=== PATIENT | female | born 1940 | race Caucasian/White ===

== ENCOUNTER 2019-09-07 12:53 | Outpatient (CLI) | payer MEDICARE, SELFPAY ==
--- NOTE | ~2019-09-07 | MM_ITS ---
EXAMINATION: MM [facility] HISTORY: Screening mammogram TECHNIQUE: Craniocaudal and mediolateral oblique 3-D tomosynthesis images were obtained and synthetic 2-D images were generated. CAD analysis was submitted and interpreted. COMPARISON: 08/05/2018, 07/14/2017, 06/30/2017 BREAST PARENCHYMAL COMPOSITION: The breasts are almost entirely fatty. FINDINGS: Scattered benign-appearing calcifications are present. There is no evidence of suspicious m ass, calcification, or architectural distortion to suggest malignancy in either breast. There has bee n no suspicious interval change. IMPRESSION: 1. No mammographic evidence of malignancy. 2. Recommend routine screening mammography in one year. BI-RADS Category 2: Benign finding(s). Reviewed, dictated and finalized at location A. ERY STRIPER
== END 2019-09-07 12:54 | disposition home or self-care (01) ==
PROVIDERS: PCP Internal Medicine; Visit Provider Internal Medicine
DX: Z12.31 Encounter for screening mammogram for malignant neoplasm of breast (principal)
CPT/HCPCS: 77063; 77067

== ENCOUNTER 2020-11-15 14:20 | Outpatient (CLI) | payer MEDICARE, SELFPAY ==
--- NOTE | ~2020-11-15 | MM_ITS ---
EXAMINATION: MM screening [facility] BI w agata HISTORY: Screening mammogram TECHNIQUE: Craniocaudal and mediolateral oblique 3-D tomosynthesis images were obtained and synthetic 2-D images were generated. CAD analysis was submitted and interpreted. COMPARISON: , 08/05/2018 bilateral digital screening mammogram examinations BREAST PARENCHYMAL COMPOSITION: The breasts are almost entirely fatty. FINDINGS: Biopsy marker on the left; history of prior benign left breast biopsy. Occasional benign calcifications. There is no evidence of suspicious mass, calcification, or architectural distortion to suggest malign sam in either breast. There has been no suspicious interval change. IMPRESSION: 1. No mammographic evidence of malignancy. 2. Recommend routine screening mammography in one year. BI-RADS Category 2: Benign finding(s). Reviewed, dictated and finalized at location A.
--- NOTE | ~2020-11-15 | DEXA_ITS ---
Bone Density Report Name: Josi Huerta Age: 80 Sex: Female Ethnicity: White Date of : 1940 Indication: postmenopausal; height loss; hysterectomy; Referring Provider: Mau Mackenzie Study: Bone densitometry was performed. Exam Date: November 15, 2020 Accession number: [id number] Bone Density: Region BMD T-score Z-score Classification AP Spine (L1-L4) 1.097 0.5 3.0 Normal Femoral Neck (Right) 0.695 -1.4 0.8 Osteopenia Total Hip (Right) 0.856 -0.7 1.3 Normal World Health Organization criteria for BMD impression classify patients as: Normal (T-score at or above -1.0), Osteopenia (T-score between -1.0 and -2.5), or Osteoporosis (T-score at or below -2.5). 10-year Fracture Risk(1): Major Osteoporotic Fracture 12% Hip Fracture 2.4% Reported Risk Factors: [place] (), Neck BMD=0.695, BMI=34.8 (1) FRAX(R) Version 3.08. Fracture probability calculated for an untreated patient. Fracture probability may be lower if the patient has received treatment. Previous Exams: Region Exam Age BMD T-score BMD Change BMD Change Date g/cm2 vs Baseline vs Previous AP Spine(L1-L4) 11/15/2020 80 1.097 0.5 -0.033(-2.9%)# 0.065(6.3%)* 08/05/2018 78 1.032 -0.1 -0.097(-8.6%)# -0.065(-6.0%)* 12/12/2014 74 1.098 0.5 -0.032(-2.8%)# -0.032(-2.8%)# 10/18/2009 69 1.129 0.7 Total Hip(Right) 11/15/2020 80 0.856 -0.7 -0.049(-5.5%)# 0.011(1.2%) 08/05/2018 78 0.846 -0.8 -0.060(-6.6%)# -0.059(-6.5%)* 12/12/2014 74 0.904 -0.3 -0.001(-0.1%)# -0.001(-0.1%)# 10/18/2009 69 0.906 -0.3 *Denotes significance at 95% confidence level, LSC for AP Spine = 0.022 g/cm2, LSC for Total Hip = 0.027 g/cm2 Clinical Information Provided by Patient: Has used the following medications: Vitamin D Has the following medical conditions: Hysterectomy Patient maximum height was 67 Menopause Age: 52 Drinks caffeinated beverages Onset of menses at age 14 Number of children 3 Impression: The patient has low bone mass, based on the Right Femoral Neck T-score. The patient has an estimated ten-year risk of hip fracture of 2.4% and an estimated ten-year risk of major fracture of 12%, based on the WHO FRAX algorithm. No significant bone loss was observed. Discussion: BONE DENSITY IS LOW AT ONE OR MORE SKELETAL SITES. This patient's lowest T-score is low at one or more skeletal sites. It meets the World Health Organization's (WHO) criteria for ?low bone mass? (T-score between -1.0 and -2.5). The patient
== END 2020-11-15 14:21 | disposition home or self-care (01) ==
LOC: ANHIMG 14:27
PROVIDERS: PCP Internal Medicine; Visit Provider Internal Medicine
DX: Z12.31 Encounter for screening mammogram for malignant neoplasm of breast (principal); M81.0 Age-related osteoporosis without current pathological fracture; M85.851 Other specified disorders of bone density and structure, right thigh
CPT/HCPCS: 77063; 77067; 77080

== ENCOUNTER 2022-03-06 10:24 | Outpatient (CLI) | payer MEDICARE, SELFPAY ==
--- NOTE | ~2022-03-06 | MM_ITS ---
EXAMINATION: MM screening [facility] BI w agata HISTORY: Screening mammogram TECHNIQUE: Craniocaudal and mediolateral oblique 3-D tomosynthesis images were obtained and synthetic 2-D images were generated. CAD analysis was submitted and interpreted. COMPARISON: 11/15/2020, , 08/05/2018 bilateral screening mammogram examinations BREAST PARENCHYMAL COMPOSITION: There are scattered areas of fibroglandular density. FINDINGS: Biopsy marker on the left; history of prior benign left breast biopsy. Scattered bilateral benign calcifications. There is no evidence of suspicious mass, calcification, or architectural disto rtion to suggest malignancy in either breast. There has been no suspicious interval change. IMPRESSION: 1. No mammographic evidence of malignancy. 2. Recommend routine screening mammography in one year. BI-RADS Category 2: Benign finding(s). Reviewed, dictated and finalized at location A.
== END 2022-03-06 10:25 | disposition home or self-care (01) ==
PROVIDERS: PCP Internal Medicine; Visit Provider Internal Medicine
DX: Z12.31 Encounter for screening mammogram for malignant neoplasm of breast (principal)
CPT/HCPCS: 77063; 77067

== ENCOUNTER 2023-12-04 13:48 | Outpatient (CLI) | payer MEDICARE, SELFPAY ==
--- NOTE | ~2023-12-04 | MM_ITS ---
EXAMINATION: MM screening [facility] BI w agata HISTORY: Screening mammogram TECHNIQUE: Craniocaudal and mediolateral oblique 3-D tomosynthesis images were obtained and synthetic 2-D images were generated. CAD analysis was submitted and interpreted. COMPARISON: 03/06/2022, 11/15/2020 bilateral screening mammogram examinations BREAST PARENCHYMAL COMPOSITION: There are scattered areas of fibroglandular density. FINDINGS: There is no evidence of suspicious mass, calcification, or architectural distortion to sugg est malignancy in either breast. There has been no suspicious interval change. IMPRESSION: 1. No mammographic evidence of malignancy. 2. Recommend routine screening mammography in one year. BI-RADS Category 1: Negative Reviewed, dictated and finalized at location B.
== END 2023-12-04 13:49 | disposition home or self-care (01) ==
PROVIDERS: PCP Internal Medicine; Visit Provider Internal Medicine
DX: Z12.31 Encounter for screening mammogram for malignant neoplasm of breast (principal)
CPT/HCPCS: 77063; 77067

== ENCOUNTER 2024-09-28 14:31 | Outpatient (CLI) | payer MEDICARE, SELFPAY ==
--- NOTE | ~2024-09-28 | DEXA_ITS ---
Bone Density Report Name: JANE CADE Age: 84 Sex: Female Ethnicity: White Date of : 1940 Indication: postmenopausal; screening for osteoporosis; height loss; prior fracture; hysterectomy; Referring Provider: LENARD BYNUM Study: Bone densitometry was performed. Exam Date: September 28, 2024 Accession number: [id number] Bone Density: Region BMD T-score Z-score Classification AP Spine(L1-L4) 1.073 0.2 3.0 Normal Femoral Neck (Right) 0.696 -1.4 1.0 Osteopenia Total Hip (Right) 0.841 -0.8 1.4 Normal World Health Organization criteria for BMD impression classify patients as: Normal (T-score at or above -1.0), Osteopenia (T-score between -1.0 and -2.5), or Osteoporosis (T-score at or below -2.5). 10-year Fracture Risk: FRAX not reported because: Prior hip or vertebral fracture Previous Exams: Region Exam Age BMD T-score BMD Change BMD Change Date g/cm2 vs Baseline vs Previous AP Spine (L1-L4) 09/28/2024 84 1.073 0.2 -0.024 (-2.2%) -0.023 (-2.1%) 11/15/2020 80 1.097 0.5 -0.001 (-0.1%) 0.065 (6.3%)* 08/05/2018 78 1.032 -0.1 -0.065 (-6.0%) -0.065 (-6.0%) 12/12/2014 74 1.098 0.5 Total Hip(Right) 09/28/2024 84 0.841 -0.8 -0.064 (-7.0%) -0.015 (-1.8%) 11/15/2020 80 0.856 -0.7 -0.048 (-5.3%) 0.011 (1.2%) 08/05/2018 78 0.846 -0.8 -0.059 (-6.5%) -0.059 (-6.5%) 12/12/2014 74 0.904 -0.3 *Denotes significance at 95% confidence level, LSC for AP Spine = 0.022 g/cm2, LSC for Total Hip = 0.027 g/cm2 Clinical Information Provided by Patient: Have had a previous hip or vertebral fracture Has had a low trauma fracture Has used the following medications: HRT (i.e. estrogen/hormone therapy), Vitamin D Has the following medical conditions: Hysterectomy Patient maximum height was 67.0 Menopause Age: 47 No regular weight bearing exercise Does not regularly consume dairy products Drinks caffeinated beverages Onset of menses at age 14 Impression: The patient has low bone mass, based on the Right Femoral Neck T-score. The patient has risk factors, including: previous fracture. The BMD for the AP Spine (L1-L4) decreased, changing by -2.1% since the last DXA exam. Discussion: INCREASED RISK OF FRACTURE DUE TO HISTORY OF FRACTURE. The patient's previous fracture puts the patient at high risk of a future fracture. In untreated patients, the risk of osteoporotic fracture increases approximately two-fold for each 1.0 SD decrease in T-score. Low bone density is not the only risk factor for fracture; also consider factors such as patient's age, frailty or poor health, risk of falling, risk of injury, previous osteoporotic fracture, family history of osteoporosis, cigarette smoking, low body weight, etc. Not everyone with a low trauma fracture has osteoporosis; osteomalacia and other metabolic bone disorders should also be considered. Patients who have osteoporosis should be evaluated for specific diseases and conditions (secondary causes) that may cause or contribute to bone loss and fracture risk. National Osteoporosis Foundation (NOF) recommends pharmacologic intervention for patients with a prior hip or vertebral fracture regardless of BMD T-score. The patient should follow a healthful lifestyle (good nutrition with adequate calcium and vitamin D, and appropriate weight-bearing exercise). Follow-Up: Consider a repeat BMD and Vertebral Fracture Assessment (VFA) exam in 2 years or sooner if medically necessary, to reassess this patient's status. Reported by: RODRIGO on 09/28/2024 3:07:00 PM. Reviewed, dictated and finalized at location [place] [facility]
--- OUTSIDE RECORDS SUMMARY | 2024-09-28 16:27 | XMS_ITS | Encounter Summary ---
Author Organization [employer] Address [address] [place] [address] Care Team Providers Care Thermostat Machine Tender Name Role Phone Jaspal Alamo MD Primary Care Provider [phone] Encounter Details Date Type Department Care Team (Latest Contact Info) Description 09/23/2000 Outpatient Historical [facility]LE[facility] Jaspal Alamo MD [address] 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 [facility] [address] [place], [place] [id number] PCP - General 09/29/01 documented as of this encounter
--- OUTSIDE RECORDS SUMMARY | 2024-09-28 16:27 | XMS_ITS | Encounter Summary ---
Author Organization [facility] Address [address] [place] [address] Care Team Providers Care Doctor Of Naprapathy Name Role Phone Mau Mackenzie DO Primary Care Provider [phone] Mike Stanley MD Unavailable Encounter Details Date Type Department Care Team (Late st Contact Info) Description 08/20/2020 Lab Requisition [facility] [address] [place] [id number] Tiny Bassett MD [address] [place] [address] Social History Tobacco Use Types Packs/Day Years Used Date Smoking Tobacco: Unknown Alcohol Use Standard Drinks/Week Comments Yes 0 (1 standard drink = 0.6 oz pur e alcohol) Sex and Gender Information Value Date Recorded Sex Assigned at Not on file Gender Identity Not on file Sexual Orientation Not on file documented as of this encounter Plan of Treatment Not on file documented as of this encounter Procedures Procedure Name Priority Date/Time Associated Diagnosis Comments DERMATOPATHOLOGY Routine 08/16/2020 12:0 0 AM TRANSMISSION REPAIRER documented in this encounter Results * DERMATOPATHOLOGY (08/16/2020 12:00 AM TRANSMISSION REPAIRER) Case Report Dermatopathology Report Case: [id number] Authorizing Provider: Tiny Bassett MD Collected: 08/16/2020 12:00 AM Ordering Location: [facility]erm[facility] Lab Received: 08/20/2020 11:08 AM Pathologist: Brandy Nunn MD Specimen: Skin, right collarbone 12:10 PM [facility] DERMATOPATHOLOGY LABORATORY Final Diagnosis Specimen A. SKIN, right collarbone: EPIDERMOID CYST (L72.0) 12:10 PM [facility] DERMATOPATHOLOGY LABORATORY Clinical History R/O cyst. 12:10 PM [facility] DERMATOPATHOLOGY [facility]ORAT[facility] Gross Description Specimen A: Received is one formalin filled container labeled with the patient's name and designated right collarbone. The specimen consists of a [id number] excision, bisected. Jar 0. 12:10 PM [facility] DERMATOPATHOLOGY LABORATORY Microscopic Description Specimen A. SKIN, right collarbone: Within the dermis, there is a space lined by epithelium that resembles normal epidermis and the infundibular portion of the hair follicle. 12:10 PM [facility] DERMATOPATHOLOGY LABORATORY Disclaimer An external and internal positive and negative controls are appropriate for the histochemical, immunohistochemical and immunofluorescence stain(s) in this case (if any), except where stated explicitly. The performance characteristics of the stain(s) cited in this report were developed and its performance characteristic determined by the Dermatopathology Laboratory at [facility], directed by Dr. Joel Nunn. These tests need not be, and therefore are not, approved by the [place] Food and Drug Administration. The tests are used for clinical purposes. Billing Codes Specimen Charges Stain Charges 20830 1 12:10 PM [facility] DERMATOPATHOLOGY LABORATORY Embedded Images 12:10 PM [facility] DERMATOPATHOLOGY LABORATORY Pathology/Cytolog y TISSUE SPECIMEN FROM SKIN / Unknown 08/16/2020 08/20/2020 11:08 AM [facility] Tiny Bassett MD LAB - PATHOLOGY/CYTO LOGY ORDERABLES DERMATOPATHOLOGY LABORATORY [facility] - Department of Dermatology [address] [place] [id number] [place] [address] documented in this encounter Visit Diagnoses Not on filedocumented in this encounter Care Teams Doctor Of Naprapathy Relationship Specialty Start Date End Date Mau Mackenzie DO [address] [facility] [address] [place] [address] PCP - General Internal Medicine 11/24/14 [place] [address] [address] Orthopedic Surgery 01/11/15 documented as of this encounter
--- OUTSIDE RECORDS SUMMARY | 2024-09-28 16:27 | XMS_ITS | Encounter Summary ---
Author Organization [facility] Address [address] [place] [address] Care Team Providers Care Reconstructive Dentist Name Role Phone Mau Mackenzie DO Primary Care Provider [phone] Mike Stanley MD Unavailable Encounter Details Date Type Department Care Team (Late st Contact Info) Description 05/08/2020 Lab Requisition [facility] [address] [facility] [place] [phone] Vee Camacho MD [address] [facility] [address] [place] [address] Social History Tobacco Use Types Packs/Day Years [...] Priority Date/Time Associated Diagnosis Comments DERMATOPATHOLOGY Routine 05/07/2020 12:0 0 AM CDT documented in this encounter Results * DERMATOPATHOLOGY (05/07/2020 12:00 AM CDT) Case Report Dermatopathology Report Case: [id number] Authorizing Provider: Vee Camacho MD Collected: 05/07/2020 12:00 AM Ordering Location: [facility] Derm[facility] Lab Received: 05/08/2020 07:14 AM Pathologist: Corina Sawyer MD Specimen: Skin, crown of scalp 0 4:32 PM [facility]T DERMATOPATHOLOGY LABORATORY Final Diagnosis Specimen A. SKIN, crown of scalp: BASAL CELL CARCINOMA, MICRONODULAR TYPE (C44.41) 0 4:32 PM [facility]T DERMATOPATHOLOGY LABORATORY Clinical History R/O BCC, irritated. 0 4:32 PM CDT DERMATOPATHOLOGY LABORATORY Gross Description Specimen A: Received is one formalin filled container labeled with the patient's name and designated crown of scalp. The specimen consists of a shave measuring [id number]. Jar 0. 0 4:32 PM CDT DERMATOPATHOLOGY LABORATORY Microscopic Description Specimen A. SKIN, crown of scalp: Within the dermis there are small aggregates of basaloid cells with a high nuclear to cytoplasmic ratio and peripheral palisading of their nuclei. 0 4:32 PM CDT DERMATOPATHOLOGY LABORATORY Disclaimer An external and internal positive and negative controls are appropriate for the histochemical, immunohistochemical and immunofluorescence stain(s) in this case (if any), except where stated explicitly. The performance characteristics of the stain(s) cited in this report were developed and its performance characteristic determined by the Dermatopathology Laboratory at [facility], directed by Dr. Joel Nunn. These tests need not be, and therefore are not, approved by the [place] Food and Drug Administration. The tests are used for clinical purposes. Billing Codes Specimen Charges Stain Charges 54174 1 0 4:32 PM CDT DERMATOPATHOLOGY LABORATORY Embedded Images 0 4:32 PM CDT DERMATOPATHOLOGY LABORATORY Pathology/Cytolog y TISSUE SPECIMEN FROM SKIN / Unknown 05/07/2020 05/08/2020 7:14 AM CDT Vee Camacho MD LAB - PATHOLOGY/CYT OLOGY ORDERABLES DERMATOPATHOLOGY LABORATORY [facility] - Department of Dermatology [facility] [address] [facility] [phone] documented in this encounter Visit Diagnoses Not on filedocumented in this encounter Care Teams Reconstructive Dentist Relationship Specialty Start Date End Date Mau Mackenzie DO [address] [facility] [address] [place] [address] PCP - General Internal Medicine 11/24/14 [place] [address] [address] Orthopedic Surgery 01/11/15 documented as of this encounter
--- OUTSIDE RECORDS SUMMARY | 2024-09-28 16:27 | XMS_ITS ---
Author Organization [facility] Address [address] [place] [address] Phone Care Team Providers Care Vice President Compliance Name Role Phone OZZY COX DO Primary Care Provider [phone] Plan of Treatment Findings Encounter Date Evaluated the patient. Discu ssed treatment options with the patient. Discussed with patient proper care and hygeine for their feet. Patient tolerated procedures well without incident. Procedure: (94149 Debridement of toenails 6-10) Surgically debrided and mechanically reduced 6 or more toenails specifically nails 1-5 left and 1-5 right. Hemmorhage occurred none. CHECK UP with VISHNU Modi 12/07/2023 Last Documented On 4 10:30AM ; [facility] Evaluated the patient. Discu ssed treatment options with the patient. Discussed with patient proper care and hygeine for their feet. Patient tolerated procedures well without incident. Procedure: ([id number] Debridement of toenails 6-10) Surgically debrided and mechanically reduced 6 or more toenails specifically nails 1-5 left and 1-5 right. Hemmorhage occurred none. CHECK UP with VISHNU Modi 09/15/2023 Last Documented On 4 2:31PM ; [facility] Evaluated the patient. Discu ssed treatment options with the patient. Discussed with patient proper care and hygeine for their feet. Patient tolerated procedures well without incident. Procedure: ([id number] Debridement of toenails 6-10) Surgically debrided and mechanically reduced 6 or more toenails specifically nails 1-5 left and 1-5 right. Hemmorhage occurred none. CHECK UP with VISHNU GOMEZ HOOP BENDER TANK C 06/15/2023 Last Documented On 3 1:41PM ; [facility] Evaluated the patient. Discu ssed treatment options with the patient. Discussed with patient proper care and hygeine for their feet. Patient tolerated procedures well without incident. Procedure: ([id number] Debridement of toenails 6-10) Surgically debrided and mechanically reduced 6 or more toenails specifically nails 1-5 left and 1-5 right. Hemmorhage occurred none. CHECK UP with VISHNU GOMEZ HOOP BENDER TANK C 12/17/2022 Last Documented On 3 1:39PM ; [facility] Evaluated the patient. Discu ssed treatment options with the patient. Discussed with patient proper care and hygeine for their feet. Patient tolerated procedures well without incident. Procedure: ([id number] Debridement of toenails 6-10) Surgically debrided and mechanically reduced 6 or more toenails specifically nails 1-5 left and 1-5 right. Hemmorhage occurred none. CHECK UP with VISHNU GOMEZ HOOP BENDER TANK C 09/16/2022 Last Documented On 3 1:56PM ; [facility] Evaluated the patient. Discu ssed treatment options with the patient. Discussed with patient proper care and hygeine for their feet. Patient tolerated procedures well without incident. Procedure: ([id number] Debridement of toenails 6-10) Surgically debrided and mechanically reduced 6 or more toenails specifically nails 1-5 left and 1-5 right. Hemmorhage occurred none. CHECK UP with VISHNU BROOKSIS HOOP BENDER TANK C 06/10/2022 Last Documented On 2 1:52PM ; [facility] Evaluated the patient. Discu ssed treatment options with the patient. Discussed with patient proper care and hygeine for their feet. Patient tolerated procedures well without incident. Procedure: ([id number] Debridement of toenails 6-10) Surgically debrided and mechanically reduced 6 or more toenails specifically nails 1-5 left and 1-5 right. Hemmorhage occurred none. CHECK UP with COLEEN BOWSER DPM 03/10/2022 Last Documented On 2 1:42PM ; [facility] Evaluated the patient. Discu ssed treatment options with the patient. Discussed with patient proper care and hygeine for their feet. Patient tolerated procedures well without incident. Procedure: ([id number] Debridement of toenails 6-10) Surgically debrided and mechanically reduced 6 or more toenails specifically nails 1-5 left and 1-5 right. Hemmorhage occurred none. CHECK UP with COLEEN BOWSER DPM 11/19/2021 Last Documented On 2 5:03PM ; [facility] Reviewed treatment options f or nail dystrophy / onychomycosis including: No treatment and monitoring, topical meds, oral meds, nail removal and laser treatment. Advantages and disadvantages of each reviewed. Using oral agents would require regular blood test monitoring due to risk of hepatotoxicity and other adverse reactions including drug interactions. Topical meds are much safer yet carry very low efficacy. Pt has opted for Monitoring and debridement Upon debridement the toenail just fell off. No need for care. Nail will grow back within six months. Return to clinic as needed PODIATRY CONSULTATION- ESTABLISHED PATIENT with COLEEN BOWSER DPM 01/15/2021 Last Documented On 1 6:09PM ; [facility] Ordered follow-up visit 2 ye ars for gyne/breast exam 1 yr. for mammogram [employer] EXAM with NATALIE FAJARDO,JASON 01/24/2010 Last Documented On 0 7:46PM ; [facility] Instructions to patient Intervention and counseling on cessation of tobacco use Last Documented On 4 9:31AM ; [facility] Intervention and counseling on cessation of tobacco use Last Documented On 4 1:45PM ; [facility] Intervention and counseling on cessation of tobacco use Last Documented On 3 1:31PM ; [facility] Intervention and counseling on cessation of tobacco use Last Documented On 3 9:27AM ; [facility] Intervention and counseling on cessation of tobacco use Last Documented On 3 11:00AM ; [facility] Intervention and counseling on cessation of tobacco use Last Documented On 2 10:49AM ; [facility] Intervention and counseling on cessation of tobacco use Last Documented On 2 9:56AM ; [facility] Intervention and counseling on cessation of tobacco use Last Documented On 1 10:59AM ; [facility] Instructions for patient : B reast Self Exam discussed Last Documented On 0 3:39PM ; [facility] Lose weight Last Documented On 0 3:39PM ; [facility] Education and Decision Aids were provided during visit for: Patient education about acti vity/exercise prescribed Last Documented On 2 10:51AM ; [facility] Patient education about acti vity/exercise prescribed Last Documented On 2 4:58PM ; [facility] Patient education about acti vity/exercise prescribed Last Documented On 1 6:08PM ; [facility] Patient Education: weight be aring exercise Last Documented On 0 3:39PM ; [facility] Handout for self breast exam given Last Documented On 0 3:39PM ; [facility] Kegels handout given Last Documented On 0 3:39PM ; [facility] Calcium handout given Last Documented On 0 3:39PM ; [facility] BMI handout given Last Documented On 0 3:39PM ; [facility] Assessments Includes: Assessments for all patient encounters Findings Encounter Date [I73.9 - Peripheral vascular disease, unspecified] peripheral vascular disease CHECK UP with VISHNU GOMEZ HOOP BENDER TANK C 12/07/2023 Last Documented On 4 10:30AM ; [facility] [L60.0 - Ingrowing nail] ing rowing nail CHECK UP with VISHNU A CECILIAIS HOOP BENDER TANK C 12/07/2023 Last Documented On 4 10:30AM ; [facility] [M79.676 - Pain in unspecifi ed toe(s)] pain in toe CHECK UP with VISHNU A CECILIAIS HOOP BENDER TANK C 12/07/2023 Last Documented On 4 10:30AM ; [facility] Onychomycosis CHECK UP with VISHNU A JASON FN P C 12/07/2023 Last Documented On 4 10:30AM ; [facility] [I73.9 - Peripheral vascular disease, unspecified] peripheral vascular disease CHECK UP with VISHNU A ONTIS HOOP BENDER TANK C 09/15/2023 Last Documented On 4 2:31PM ; [facility] [L60.0 - Ingrowing nail] ing rowing nail CHECK UP with VISHNU A ONTIS HOOP BENDER TANK C 09/15/2023 Last Documented On 4 2:31PM ; [facility] [M79.676 - Pain in unspecifi ed toe(s)] pain in toe CHECK UP with VISHNU A ONTIS HOOP BENDER TANK C 09/15/2023 Last Documented On 4 2:31PM ; [facility] Onychomycosis CHECK UP with VISHNU A ONTIS FN P C 09/15/2023 Last Documented On 4 2:31PM ; [facility] [I73.9 - Peripheral vascular disease, unspecified] peripheral vascular disease CHECK UP with VISHNU A ONTIS HOOP BENDER TANK C 06/15/2023 Last Documented On 3 1:41PM ; [facility] [L60.0 - Ingrowing nail] ing rowing nail CHECK UP with VISHNU A ONTIS HOOP BENDER TANK C 06/15/2023 Last Documented On 3 1:41PM ; [facility] [M79.676 - Pain in unspecifi ed toe(s)] pain in toe CHECK UP with VISHNU A ONTIS HOOP BENDER TANK C 06/15/2023 Last Documented On 3 1:41PM ; [facility] Onychomycosis CHECK UP with VISHNU A ONTIS FN P C 06/15/2023 Last Documented On 3 1:41PM ; [facility] [I73.9 - Peripheral vascular disease, unspecified] peripheral vascular disease CHECK UP with COLEEN BOWSER DPM 03/17/2023 Last Documented On 3 9:43AM ; [facility] [L60.0 - Ingrowing nail] ing rowing nail CHECK UP with COLEEN BOWSER DPM 03/17/2023 Last Documented On 3 9:43AM ; [facility] [M79.676 - Pain in unspecifi ed toe(s)] pain in toe CHECK UP with COLEEN Walker NIELS DPM 03/17/2023 Last Documented On 3 9:43AM ; [facility] Onychomycosis CHECK UP with COLEEN BOWSER DPM 03/17/2023 Last Documented On 3 9:43AM ; [facility] [I73.9 - Peripheral vascular disease, unspecified] peripheral vascular disease CHECK UP with VISHNU A ONTIS HOOP BENDER TANK C 12/17/2022 Last Documented On 3 1:39PM ; [facility] [M79.676 - Pain in unspecifi ed toe(s)] pain in toe CHECK UP with VISHNU A ONTIS HOOP BENDER TANK C 12/17/2022 Last Documented On 3 1:39PM ; [facility] ONYCHOLYSIS CHECK UP with VISHNU A ONTIS FN P C 12/17/2022 Last Documented On 3 1:39PM ; [facility] Onychomycosis CHECK UP with VISHNU A ONTIS FN P C 12/17/2022 Last Documented On 3 1:39PM ; [facility] [M79.676 - Pain in unspecifi ed toe(s)] pain in toe CHECK UP with VISHNU A ONTIS HOOP BENDER TANK C 09/16/2022 Last Documented On 3 1:56PM ; [facility] ONYCHOLYSIS CHECK UP with VISHNU A ONTIS FN P C 09/16/2022 Last Documented On 3 1:56PM ; [facility] Onychomycosis CHECK UP with VISHNU A ONTIS FN P C 09/16/2022 Last Documented On 3 1:56PM ; [facility] [M79.676 - Pain in unspecifi ed toe(s)] pain in toe CHECK UP with VISHNU A ONTIS HOOP BENDER TANK C 06/10/2022 Last Documented On 2 1:52PM ; [facility] ONYCHOLYSIS CHECK UP with VISHNU BROOKSDUANE FN P C 06/10/2022 Last Documented On 2 1:52PM ; [facility] Onychomycosis CHECK UP with VISHNU BROOKSIS FN P C 06/10/2022 Last Documented On 2 1:52PM ; [facility] [M79.676 - Pain in unspecifi ed toe(s)] pain in toe CHECK UP with COLEEN Aaron BOWSER DPM 03/10/2022 Last Documented On 2 1:42PM ; [facility] ONYCHOLYSIS CHECK UP with COLEEN Aaron EASTMANBOWSER DPM 03/10/2022 Last Documented On 2 1:42PM ; [facility] Onychomycosis CHECK UP with COLEEN Aaron GOYALY DPM 03/10/2022 Last Documented On 2 1:42PM ; [facility] [M79.676 - Pain in unspecifi ed toe(s)] pain in toe CHECK UP with COLEEN Aaron BOWSER DPM 11/19/2021 Last Documented On 2 5:03PM ; [facility] ONYCHOLYSIS CHECK UP with COLEEN A BOWSER DPM 11/19/2021 Last Documented On 2 5:03PM ; [facility] Onychomycosis CHECK UP with COLEEN A BOWSER DPM 11/19/2021 Last Documented On 2 5:03PM ; [facility] ONYCHOLYSIS PODIATRY CONSULTATIO N- ESTABLISHED PATIENT with COLEEN A BOWSER DPM 01/15/2021 Last Documented On 1 6:09PM ; [facility] Onychomycosis PODIATRY CONSULTATIO N- ESTABLISHED PATIENT with COLEEN A BOWSER DPM 01/15/2021 Last Documented On 1 6:09PM ; [facility] Routine pelvic exam [employer] C[employer]ER EXAM with NATALIE RAINEY CNM 01/24/2010 Last Documented On 0 7:46PM ; [facility] Instructions Includes: Instructions for all patient encounters Instructions to patient Intervention and counseling on cessation of tobacco use Last Documented On 4 9:31AM ; [facility] Intervention and counseling on cessation of tobacco use Last Documented On 4 1:45PM ; [facility] Intervention and counseling on cessation of tobacco use Last Documented On 3 1:31PM ; [facility] Intervention and counseling on cessation of tobacco use Last Documented On 3 9:27AM ; [facility] Intervention and counseling on cessation of tobacco use Last Documented On 3 11:00AM ; [facility] Intervention and counseling on cessation of tobacco use Last Documented On 2 10:49AM ; [facility] Intervention and counseling on cessation of tobacco use Last Documented On 2 9:56AM ; [facility] Intervention and counseling on cessation of tobacco use Last Documented On 1 10:59AM ; [facility] Instructions for patient : B reast Self Exam discussed Last Documented On 0 3:39PM ; [facility] Lose weight Last Documented On 0 3:39PM ; [facility] Education and Decision Aids were provided during visit for: Patient education about acti vity/exercise prescribed Last Documented On 2 10:51AM ; [facility] Patient education about acti vity/exercise prescribed Last Documented On 2 4:58PM ; [facility] Patient education about acti vity/exercise prescribed Last Documented On 1 6:08PM ; [facility] Patient Education: weight be aring exercise Last Documented On 0 3:39PM ; [facility] Handout for self breast exam given Last Documented On 0 3:39PM ; [facility] Kegels handout given Last Documented On 0 3:39PM ; [facility] Calcium handout given Last Documented On 0 3:39PM ; [facility] BMI handout given Last Documented On 0 3:39PM ; [facility] Medical Equipment - Implanted Devices Includes: Current and historical Devices No Medical Equipment Recorded Medications Includes: Current and historical Medications Current Medications (continue as prescribed) amLODIPine Besylate 5 MG Oral Tablet 12/02/2022 Prov ider: OZZY COX DO Diagnosis: Last Documented On 3 9:24AM By Corrie TORRES ; [facility] Lisinopril 40 MG Oral Tablet 10/29/2022 Provider: OZZY COX DO Diagnosis: Last Documented On 3 9:25AM By Corrie TORRES ; [facility] Levoxyl 100 MCG Oral Tablet 10/29/2022 Provider: SHEYLA ANGULO MD Diagnosis: Last Documented On 3 9:24AM By Corrie TORRES ; [facility] Adult Aspirin Low Strength 81 MG OR TBDP 01/24/2010 Provider: Diagnosis: Last Documented On 01/24/2010 3:13PM By TONY BERNSTEIN ; [facility] Past Medications on file Benzonatate 200 MG Oral Capsule 12/02/2022 - 12/17/2022 Provider: OZZY Claros DO Diagnosis: Last Documented On 3 9:24AM By Corrie TORRES ; [facility] Azithromycin 250 MG Oral Tablet 12/02/2022 - 12/17/2022 Provider: OZZY Claros DO Diagnosis: Last Documented On 3 9:25AM By Corrie TORRES ; [facility] Levoxyl 100 MCG Oral Tablet 01/30/2022 - 12/17/2022 Pr ovider: Diagnosis: Last Documented On 3 9:25AM By Corrie TORRES ; [facility] amLODIPine Besylate 2.5 MG Oral Tablet 01/05/2022 - 12/17/2022 Provider: COSTA GARCIA Diagnosis: Last Documented On 3 9:24AM By Corrie TORRES ; [facility] Lisinopril 40 MG Oral Tablet 12/27/2021 - 12/17/2022 P rickder: Diagnosis: Last Documented On 3 9:25AM By Corrie TORRES ; [facility] Synthroid 100 MCG OR TABS 01/24/2010 - 03/10/2022 Prov ider: Diagnosis: Last Documented On 03/10/2022 10:47AM By Thor TORRES ; [facility] Lisinopril 10 MG OR TABS 01/24/2010 - 03/10/2022 Provi torey: Diagnosis: Last Documented On 03/10/2022 10:47AM By Thor TORRES ; [facility] Estrace 0.1 MG/GM VA CREA 01/24/2010 - 12/17/2022 Provider: NATALIE ZUÑIGA-MARK WAY Diagnosis: Apply 4-5 days a week Last Documented On 3 9:25AM By Corrie TORRES ; [facility] Medications Administered Includes: Administered Medications in patient's chart No Administered Medications Recorded Vital Signs Includes: Vital Signs from 09/29/2023 through 09/28/2024 Vital Name 12/07/2023 09:31A Blood Pressure Sitting L 128/74 BP Cuff Size Regular Pulse Rate-Sitting (bpm) 73 Respiration Rate (breaths/min) 18 Height (in) 66 Weight (lb) 173.5 Body Mass Index 28 Body Surface Area 1.9 Oxygen Saturation (%) 98 Last Documented: On 12/07/2023 9:31AM ; [facility] Results Includes: Results from 09/29/2023 through 09/28/2024 No Results Recorded For Specified Dates History of Present Illness History of Present Illness not supported for this document type No History of Present Illness Recorded Social History Description Last Updated Tobacco non-user 03/17/2023 Last Documented On 3 9:43AM ; [facility] Current smoker 06/10/2022 Last Documented On 2 1:52PM ; [facility] Alcohol use SOCIAL 01/24/2010 Last Documented On 0 7:46PM ; [facility] Cigarette smoking SOCIAL 01/24/2010 Last Documented On 0 7:46PM ; [facility] Non-smoker 01/24/2010 Last Documented On 0 7:46PM ; [facility] Alcohol SOCIAL 01/24/2010 Last Documented On 0 7:46PM ; [facility] Caffeine use 01/24/2010 Last Documented On 0 7:46PM ; [facility] Daily coffee consumption was five cups p er day 01/24/2010 Last Documented On 0 7:46PM ; [facility] Drug use by a sexual partner does not in clude intravenous drug use 01/24/2010 Last Documented On 0 7:46PM ; [facility] Educational level: grade 20 YEARS 2009 Last Documented On 0 7:46PM ; [facility] Exercise frequency was five times/week 0 01/24/2010 Last Documented On 0 7:46PM ; [facility] Exercising regularly WALKING 01/24/2010 Last Documented On 0 7:46PM ; [facility] Not sexually active 01/24/2010 Last Documented On 0 7:46PM ; [facility] Not using intravenous drugs 01/24/2010 Last Documented On 0 7:46PM ; [facility] Partner has not had a STD in the past ye ar 01/24/2010 Last Documented On 0 7:46PM ; [facility] Patient does not report having sex when she didn't want to 01/24/2010 Last Documented On 0 7:46PM ; [facility] Patient has not had sex unde r the influence of alcohol or drugs in the last year 01/24/2010 Last Documented On 0 7:46PM ; [facility] Nondenominational affiliation RASTAFARIAN 0 Last Documented On 0 7:46PM ; [facility] Sexual partner has not had o ther partners while in relationship with patient 01/24/2010 Last Documented On 0 7:46PM ; [facility] Sexual partner has not had sex with pros titutes 01/24/2010 Last Documented On 0 7:46PM ; [facility] Sexually active with 1 partners in the l ast year 01/24/2010 Last Documented On 0 7:46PM ; [facility] The racial background WHITE 01/24/2010 Last Documented On 0 7:46PM ; [facility] Tobacco use 01/24/2010 Last Documented On 0 7:46PM ; [facility] Smoking Status Unknown Procedures and Surgical History Includes: Procedures from 09/29/2023 through 09/28/2024 Procedures Code Diagnosis Performing Provider Service Location Service Date DEBRIDEMENT NAIL(S) ANY METHOS 6 OR MORE 13038 Ingrowing nail, Pain in unspecified toe(s), Tinea unguium, Other specified peripheral vascular diseases VISHNU Aaron GOMEZ HOOP BENDER TANK C [facility] 12/07/2023 Last Documented On 4 12:33PM ; [facility] DEBRIDEMENT NAILS(S) ANY METHOD 6 OR MORW 62140 Ingrowing nail, Pain in unspecified toe(s), Tinea unguium, Other specified peripheral vascular diseases VISHNU GOMEZ HOOP BENDER TANK C [facility] 12/07/2023 Last Documented On 4 12:33PM ; [facility] Surgical History Last Updated History of hysterectomy 01/24/2010 Last Documented On 0 7:46PM ; [facility] History of total abdominal hysterectomy 01/24/2010 Last Documented On 0 7:46PM ; [facility] No history of appendectomy 01/24/2010 Last Documented On 0 7:46PM ; [facility] No history of cholecystectomy 01/24/2010 Last Documented On 0 7:46PM ; [facility] Medical History Includes: Medical History in patient's chart Description Last Updated Denies a fear of falling. 01/15/2021 Last Documented On 1 6:09PM ; [facility] Has had no fall in the last 12 months. 0 01/15/2021 Last Documented On 1 6:09PM ; [facility] A colonoscopy was performed 2005 010 Last Documented On 0 7:46PM ; [facility] History of benign essential hypertension 01/24/2010 Last Documented On 0 7:46PM ; [facility] History of cervical dysplasia 01/24/2010 Last Documented On 0 7:46PM ; [facility] History of thyroid disorder GRAVES DISEA SE 01/24/2010 Last Documented On 0 7:46PM ; [facility] Last mammogram date: 01/25/2008 11-02/2010 Last Documented On 0 7:46PM ; [facility] No history of human papilloma virus infe ction 01/24/2010 Last Documented On 0 7:46PM ; [facility] Para 3 01/24/2010 Last Documented On 0 7:46PM ; [facility] Patient recently had a dexa scan 10/26/19 10 01/24/2010 Last Documented On 0 7:46PM ; [facility] comments: VAGINAL 01/24/2010 Last Documented On 0 7:46PM ; [facility] 3 living children 01/24/2010 Last Documented On 0 7:46PM ; [facility] A breast self-exam was performed 010 Last Documented On 0 7:46PM ; [facility] A mammogram was performed 01/24/2010 Last Documented On 0 7:46PM ; [facility] A Pap smear was performed 01/24/2010 Last Documented On 0 7:46PM ; [facility] An HIV test was not performed 01/24/2010 Last Documented On 0 7:46PM ; [facility] weight: was nine kg 01/24/2010 Last Documented On 0 7:46PM ; [facility] Duration of labor: was five hr 0 Last Documented On 0 7:46PM ; [facility] Gestational age: was 41 weeks 01/24/2010 Last Documented On 0 7:46PM ; [facility] 3 01/24/2010 Last Documented On 0 7:46PM ; [facility] High cholesterol 01/24/2010 Last Documented On 0 7:46PM ; [facility] History of the 3rd : 01/24/2010 Last Documented On 0 7:46PM ; [facility] Hypertension 01/24/2010 Last Documented On 0 7:46PM ; [facility] Last pap smear date 09/25/2007 01/24/2010 Last Documented On 0 7:46PM ; [facility] 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 01/24/2010 Last Documented On 0 7:46PM ; [facility] Not previously diagnosed with a STD 02/2010 Last Documented On 0 7:46PM ; [facility] Previous hospitalizations TING-92 ~THYROI DECTOMY-2000 ~[id number] 01/24/2010 Last Documented On 0 7:46PM ; [facility] Thyroid disease 01/24/2010 Last Documented On 0 7:46PM ; [facility] Family History Includes: Family History in patient's chart Description Last Updated Family history of diabetes mellitus MOM SIDE 01/24/2010 Last Documented On 0 7:46PM ; [facility] No family history of malignant female br east neoplasm 01/24/2010 Last Documented On 0 7:46PM ; [facility] No family history of malignant neoplasm of the large intestine 01/24/2010 Last Documented On 0 7:46PM ; [facility] No family history of malignant neoplasm of the ovary 01/24/2010 Last Documented On 0 7:46PM ; [facility] Family history of Diabetes 01/24/2010 Last Documented On 0 7:46PM ; [facility] Family history of thyroid disease 2009 Last Documented On 0 7:46PM ; [facility] Heart disease 01/24/2010 Last Documented On 0 7:46PM ; [facility] Review of Systems Review of Systems not supported for this document type No Review of Systems Recorded Mental Status No Mental Status Recorded Functional Status No Functional Status Recorded Physical Exam Physical Exam not supported for this document type No Physical Exam Recorded Allergies Includes: Active, inactive, and resolved Allergies No Known Allergies Encounters Includes: Encounters from 09/29/2023 through 09/28/2024 Encounter Provider Location Date Check-In Time Check-Out Time Diagnosis CHECK UP VISHNU DIEGOP C [facility] 4 9:21AM 9:41AM Ingrowing Nail,Peripher al Vascular Disease,[place] tophytosis Nails Onychomycosis ,Limb Pain Toe Insurance Includes: Active Insurance Policies Plan Name Member ID Group # Subscriber Relationship Effect melissa Dates - [id number] JANE CADE Self Clinical Notes Includes: Signed Clinical Notes starting from 08/08/2022 * Progress note Date Encounter Last Documented by 12/07/2023 CHECK UP Last documented on 12/07/2023; 10:30 AM, VISHNU DIEGOP C; [facility] Chief Complaint The Chief Complaint is: TOENAIL TRIM, History of Present Illness JANE CADE is an 83 year old female. - Allergy list reviewed - Past medical history reviewed - Problem list reviewed - Medication reconciliation performed - Medication list reviewed - Primary Care Provider: OZZY COX - Primary Care Provider: DR OZZY COX but Patient is a pleasant 83-year-old female who presents to clinic today for eval of the L 2nd toenail that is painful and ARFC . She reports it is ingrown and very tender. She cannot cut it. 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 Medical: Previous hospitalizations TING-92 THYROIDECTOMY-2000 [id number] and a breast self-exam was performed. Thyroid disease, Hypertension, and high cholesterol. Tests: A Pap smear was performed, a mammogram was performed, a colonoscopy was performed 2005, and patient recently had a dexa scan 10/25/2009. : 3, para 3 having 3 living children, comments: VAGINAL, history of the 3rd : gestational age: was 41 weeks, weight: was nine kg, and duration of labor: was five hr. Diagnoses: Benign essential hypertension. Cervical dysplasia. Thyroid disorder GRAVES DISEASE Surgical: - Hysterectomy - Total abdominal hysterectomy Social History Racial background WHITE. Caffeine use: Daily coffee consumption was five cups per day. Tobacco use: Cigarette smoking SOCIAL and non-smoker. Alcohol: Alcohol SOCIAL and alcohol use SOCIAL. Habits: Exercise frequency was five times/week. Education: Educational level: grade 18 YEARS. Nondenominational Status: Nondenominational affiliation [employer]. Sexual: Sexually active with 1 partners in the last year. Allergies - No Known Allergies Family History Heart disease Thyroid disease Diabetes Diabetes mellitus MOM SIDE Review Of Systems Neurological: No ataxia. Psychological: No fear of falling. Past Medical: No fall in the past 6 months. Physical Findings - Vitals taken 12/07/2023 09:31 am BP-Sitting L 128/74 mmHg BP Cuff Size Regular Pulse Rate-Sitting 73 bpm Respiration Rate 18 per min Height 66 in Weight 173 lbs 8 oz Body Mass Index 28 kg/m2 Body Surface Area 1.9 m2 Oxygen Saturation 98 % Cardiovascular: DP pulse is palpable left and palpable right. PT pulse is non-palpable left and non-palpable right. Capillary refill is sluggish left and sluggish right. Edema mild bilateral LE Mild varicosities present legs Temperature warm proximally to cool distally bilateral Hemosiderin deposits absent bilateral Dermatalogic: The patient's nails appear incurvated, thickened, elongated, dystrophic, discolored with subungual debris 1-5 right, 1-5 left nails. Digital hair growth is absent left and absent right. Skin is of decreased texture and decreased turgor. Neurological: Vibratory (128-Hz tuning fork) sensation is absent to right and absent to left. Monofilament (10-g) sensation is +10/10 to right and +10/10 to left. Parasthesias absent Musculoskeletal: Muscle Strength is +5/5 to all compartments of bilateral lower extremity. Bunions Deformity absent Hammer digit deformity present Gait: Angle of gait is appropriate. Base is appropriate. Assessment - [I73.89 - Other specified peripheral vascular diseases] Peripheral vascular disease - [B35.1 - Tinea unguium] Onychomycosis - [L60.0 - Ingrowing nail] Ingrowing nail - [M79.676 - Pain in unspecified toe(s)] Pain in toe Therapy - Encouragement to exercise. - Intervention and counseling on cessation of tobacco use. - Clinical summary provided to patient. Plan Evaluated the patient. Discussed treatment options with the patient. Discussed with patient proper care and hygeine for their feet. Patient tolerated procedures well without incident. Procedure: (33035 Debridement of toenails 6-10) Surgically debrided and mechanically reduced 6 or more toenails specifically nails 1-5 left and 1-5 right. Hemmorhage occurred none. . ONYCHOMYCOSIS (FUNGUS NAIL) Clinic evidence of mycosis of the nail Positive culture complete on: Medical Evidence Documenting Podiatric Care Limitation of ambulation requiring active treatment of the foot, ambulatory patient. Non-ambulatory patient with diagnoses likely to result in significant medical complication in the absence of such treatment. Non-ambulatory patient requiring active treatment of the foot to prevent complications. 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 Absent posterior tibial (ankle) pulse 2. Advanced trophic changes: {Indicate three (minimum) trophic changes from this list} Hair growth (decrease) Nail changes (thickening) Pigmentary changes (discoloration) Skin color (rubor or redness) Skin texture (thin, shiny) 3. Absent dorsalis pedis (foot) pulse (pedal pulses) left CLASS C FINDINGS/Q9: (minimum of 2) Burning Claudication Edema Paresthesia (numbness, tingling) Temperature changes (cold feet) Pt elects for slant back at this time. RTC PRN Practice Management Use of tobacco assessment performed and patient screened for future fall risk documentation of any fall with injury in past year Review of medications documented. Health Reminders - Assess BMI satisfied 12/07/2023. - Assess Screening for Fall Risk satisfied 12/07/2023. - Assess Tobacco Use satisfied 12/07/2023. - Smoking & Tobacco Cessation Intervention and Counseling satisfied 12/07/2023.
--- OUTSIDE RECORDS SUMMARY | 2024-09-28 16:27 | XMS_ITS ---
Care Plan - [facility] Created on: September 28, 2024 JANE CADE : 1940 Sex: Female Author Organization [facility] Address [address] [place] [address] Phone Care Team Providers Care Yard Engineer Name Role Phone OZZY COX DO Primary Care Provider [phone]
--- OUTSIDE RECORDS SUMMARY | 2024-09-28 16:28 | XMS_ITS | Clinical Summary ---
Author Organization [facility] Address [address] [place] [address] Phone Care Team Providers Care Car Spotter Name Role Phone OZZY COX DO Primary Care Provider [phone] Reason for Visit and Chief Complaint The Chief Complaint is: TOENAIL TRIM Plan of Treatment ONYCHOMYCOSIS (FUNGUS NAIL) Clinic evidence of mycosis [...] Paresthesia (numbness, tingling) Temperature changes (cold feet) - Last Documented On 03/17/2023 9:43AM ; [facility] Pt elects for slant back at this time. RTC PRN - Last Documented On 03/17/2023 9:43AM ; [facility] Assessments Includes: Assessments from this encounter Findings - [I73.9 - Peripheral vascular disease, unspecified] Peripheral vascular disease - Last Documented On 03/17/2023 9:43AM ; [facility] - [B35.1 - Tinea unguium] Onychomycosis - Last Documented On 03/17/2023 9:43AM ; [facility] - [L60.0 - Ingrowing nail] Ingrowing nail - Last Documented On 03/17/2023 9:43AM ; [facility] - [M79.676 - Pain in unspecified toe(s)] Pain in toe - Last Documented On 03/17/2023 9:43AM ; [facility] Medical Equipment - Implanted Devices Includes: Current Devices No Medical Equipment Recorded Medications Includes: Medications discussed during this encounter and other current Medications Current Medications (continue as prescribed) amLODIPine Besylate 5 MG Oral Tablet 12/02/2022 Prov ider: OZZY COX DO Diagnosis: Last Documented On 3 9:24AM By Corrie TORRES ; [facility] Lisinopril 40 MG Oral Tablet 10/29/2022 Provider: OZZY COX DO Diagnosis: Last Documented On 3 9:25AM By Corrie TORRES ; [facility] Levoxyl 100 MCG Oral Tablet 10/29/2022 Provider: SHEYLA ANGULO MD Diagnosis: Last Documented On 3 9:24AM By Corrie TORRES ; [facility] Adult Aspirin Low Strength 81 MG OR TBDP 01/24/2010 Provider: Diagnosis: Last Documented On 01/24/2010 3:13PM By TONY BERNSTEIN ; [facility] Medications Administered Includes: Administered Medications from this encounter No Administered Medications Recorded Vital Signs Includes: Vital Signs from this encounter Vital Name 03/17/2023 08:49A Blood Pressure Sitting L 130/72 BP Cuff Size Regular Pulse Rate-Sitting (bpm) 76 Respiration Rate (breaths/min) 21 Temp-Tympanic (F) 97.8 Height (in) 66 Weight (lb) 177.6 Body Mass Index 28.7 Body Surface Area 1.9 Oxygen Saturation (%) 99 Last Documented: On 03/17/2023 8:49AM ; [facility] Results Includes: Results discussed during this encounter No Results Recorded For Specified Dates History of Present Illness Includes: History of Present Illness from this encounter LA NENA CADE is an 82 year old female. - Allergy list reviewed - Past medical history reviewed - Problem list reviewed - Medication reconciliation performed - Medication list reviewed - Primary Care Provider: OZZY COX - Primary Care Provider: DR OZZY COX Patient is a pleasant 82-year-old female who presents to clinic today for eval of the L 2nd toenail that is painful. She reports it is ingrown and very tender. She cannot cut it. Social History Description Last Updated Tobacco non-user 03/17/2023 Last Documented On 3 9:43AM ; [facility] Alcohol use SOCIAL 01/24/2010 Last Documented On 3 8:48AM ; [facility] Cigarette smoking SOCIAL 01/24/2010 Last Documented On 3 8:48AM ; [facility] Non-smoker 01/24/2010 Last Documented On 3 8:48AM ; [facility] Alcohol SOCIAL 01/24/2010 Last Documented On 3 8:48AM ; [facility] Caffeine use 01/24/2010 Last Documented On 3 8:48AM ; [facility] Daily coffee consumption was five cups p er day 01/24/2010 Last Documented On 3 8:48AM ; [facility] Educational level: grade 18 YEARS 2009 Last Documented On 3 8:48AM ; [facility] Exercise frequency was five times/week 0 01/24/2010 Last Documented On 3 8:48AM ; [facility] Bahai affiliation M[employer] 07/08/201 0 Last Documented On 3 8:48AM ; [facility] Sexually active with 1 partners in the l ast year 01/24/2010 Last Documented On 3 8:48AM ; [facility] The racial background WHITE 01/24/2010 Last Documented On 3 8:48AM ; [facility] Tobacco use 01/24/2010 Last Documented On 3 8:48AM ; [facility] Smoking Status Unknown Procedures and Surgical History Includes: Procedures from this encounter Procedures Code Diagnosis Performing Provider Service L ocation Service Date use of tobacco assessment performed 1000F Last Documented On 3 8:49AM ; [facility] patient screened for future fall risk: documentation of any fall with injury in past year 1100F Last Documented On 3 8:49AM ; [facility] review of medications documented 1160F Last Documented On 3 9:43AM ; [facility] encouragement to exercise Last Documented On 3 9:43AM ; [facility] Clinical summary provided to patient Last Documented On 3 9:43AM ; [facility] Surgical History Last Updated History of hysterectomy 01/24/2010 Last Documented On 3 8:48AM ; [facility] History of total abdominal hysterectomy 01/24/2010 Last Documented On 3 8:48AM ; [facility] Medical History Includes: Medical History addressed during this encounter Description Last Updated A colonoscopy was performed 2005 010 Last Documented On 3 8:48AM ; [facility] History of benign essential hypertension 01/24/2010 Last Documented On 3 8:48AM ; [facility] History of cervical dysplasia 01/24/2010 Last Documented On 3 8:48AM ; [facility] History of thyroid disorder GRAVES DISEA SE 01/24/2010 Last Documented On 3 8:48AM ; [facility] Last mammogram date: 01/25/2008 11-02/2010 Last Documented On 3 8:48AM ; [facility] Para 3 01/24/2010 Last Documented On 3 8:48AM ; [facility] Patient recently had a dexa scan 10/26/19 10 01/24/2010 Last Documented On 3 8:48AM ; [facility] comments: VAGINAL 01/24/2010 Last Documented On 3 8:48AM ; [facility] 3 living children 01/24/2010 Last Documented On 3 8:48AM ; [facility] A breast self-exam was performed 010 Last Documented On 3 8:48AM ; [facility] A mammogram was performed 01/24/2010 Last Documented On 3 8:48AM ; [facility] A Pap smear was performed 01/24/2010 Last Documented On 3 8:48AM ; [facility] weight: was nine kg 01/24/2010 Last Documented On 3 8:48AM ; [facility] Duration of labor: was five hr 0 Last Documented On 3 8:48AM ; [facility] Gestational age: was 41 weeks 01/24/2010 Last Documented On 3 8:48AM ; [facility] 3 01/24/2010 Last Documented On 3 8:48AM ; [facility] High cholesterol 01/24/2010 Last Documented On 3 8:48AM ; [facility] History of the 3rd : 01/24/2010 Last Documented On 3 8:48AM ; [facility] Hypertension 01/24/2010 Last Documented On 3 8:48AM ; [facility] Last pap smear date 09/25/2007 01/24/2010 Last Documented On 3 8:48AM ; [facility] LMP: SALESPERSON STEREO EQUIPMENT 01/24/2010 Last Documented On 3 8:48AM ; [facility] Previous hospitalizations TING-92 ~THYROI DECTOMY-2001 ~[id number] 01/24/2010 Last Documented On 3 8:48AM ; [facility] Thyroid disease 01/24/2010 Last Documented On 3 8:48AM ; [facility] Family History Includes: Family History addressed during this encounter Description Last Updated Family history of diabetes mellitus MOM SIDE 01/24/2010 Last Documented On 3 8:48AM ; [facility] Family history of Diabetes 01/24/2010 Last Documented On 3 8:48AM ; [facility] Family history of thyroid disease 2009 Last Documented On 3 8:48AM ; [facility] Heart disease 01/24/2010 Last Documented On 3 8:48AM ; [facility] Review of Systems Includes: Review of Systems from this encounter Neurological: No ataxia. Psychological: No fear of falling. Past Medical: No fall in the past 6 months. Mental Status Includes: Mental Status from this encounter No Mental Status Recorded Functional Status Includes: Functional Status from this encounter No Functional Status Recorded Physical Exam Includes: Physical Exam from this encounter Allergies Includes: Active Allergies No Known Allergies Encounters Encounter Provider Location Date Check-In Time Check- Out Time Diagnosis CHECK UP COLEEN BOWSER DPM [facility] 3 8:38AM 9:04AM Peripheral Vascular Disease,Dermat ophytosis Nails Onychomycosis, Limb Pain Toe,Ingrowing Nail Insurance Includes: Active Insurance Policies Plan Name Member ID Group # Subscriber Relationship Effect melissa Dates - [employer] [id number] JANE CADE Self Clinical Notes Includes: Clinical Notes from this encounter * Progress note Date Encounter Last Documented by 03/17/2023 CHECK UP Last documented on 03/17/2023; 9:43 AM, COLEEN BOWSER DPM; [facility] Chief Complaint The Chief Complaint is: TOENAIL TRIM. History of Present Illness JANE CADE is an 82 year old female. - Allergy list reviewed - Past medical history reviewed - Problem list reviewed - Medication reconciliation performed - Medication list reviewed - Primary Care Provider: OZZY COX - Primary Care Provider: DR OZZY COX Patient is a pleasant 82-year-old female who presents to clinic today for eval of the L 2nd toenail that is painful. She reports it is ingrown and very tender. She cannot cut it. Current Medication - Adult Aspirin Low Strength 81 MG Tablet Disintegrating 0 days, 0 refills - amLODIPine Besylate 5 MG Oral Tablet 90 days, 0 refills - Levoxyl 100 MCG Oral Tablet 90 days, 0 refills - Lisinopril 40 MG Oral Tablet 90 days, 0 refills Past Medical/Surgical History Reported: LMP: SALESPERSON STEREO EQUIPMENT, Last pap smear date 09/25/2007, and Last mammogram date: 01/25/2008 11- 09. Medical: Previous hospitalizations TING-92 THYROIDECTOMY-2000 [id number] and a breast self-exam was performed. Thyroid [...] cups per day. Tobacco use: Cigarette smoking SOCIAL, tobacco non-user, and non-smoker. Alcohol: Alcohol SOCIAL and alcohol use SOCIAL. Habits: Exercise frequency was five times/week. Education: Educational level: grade 18 YEARS. Bahai Status: Bahai affiliation [employer]. Sexual: Sexually active with 1 partners in the last year. Allergies - No Known Allergies Family History Heart disease Thyroid disease Diabetes Diabetes mellitus MOM SIDE Review Of Systems Neurological: No ataxia. Psychological: No fear of falling. Past Medical: No fall in the past 6 months. Physical Findings - Vitals taken 03/17/2023 08:49 am BP-Sitting L 130/72 mmHg BP Cuff Size Regular Pulse Rate-Sitting 76 bpm Respiration Rate 21 per min Temp-Tympanic 97.8 F Height 66 in Weight 177 lbs 9.6 oz Body Mass Index 28.7 kg/m2 Body Surface Area 1.9 m2 Oxygen Saturation 99 % Cardiovascular: DP pulse is palpable left [...] is appropriate. Base is appropriate. Assessment - [I73.9 - Peripheral vascular disease, unspecified] Peripheral vascular disease - [B35.1 - Tinea unguium] Onychomycosis - [L60.0 - Ingrowing nail] Ingrowing nail - [M79.676 - Pain in unspecified toe(s)] Pain in toe Therapy - Encouragement to exercise. - Clinical summary provided to patient. Plan ONYCHOMYCOSIS (FUNGUS NAIL) Clinic evidence of mycosis [...] documented. Health Reminders - Assess BMI satisfied 03/17/2023. - Assess Screening for Fall Risk satisfied 03/17/2023. - Assess Tobacco Use satisfied 03/17/2023.
--- OUTSIDE RECORDS SUMMARY | 2024-09-28 16:28 | XMS_ITS | Encounter Summary ---
Author Organization [employer] Address [address] [place] [address] Care Team Providers Care Home Therapy Teacher Name Role Phone Jaspal Alamo MD Primary Care Provider [phone] Encounter Details Date Type Department Care Team (Latest Contact Info) Description 09/29/2001 Outpatient Historical HIS NUCLEAR MEDIC[facility] Jaspal Alamo MD [address] 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 [facility] [address] [place], [place] [phone] PCP - General 09/29/01 documented as of this encounter
--- OUTSIDE RECORDS SUMMARY | 2024-09-28 16:28 | XMS_ITS | Clinical Summary ---
Author Organization [facility] Address [address] [place] [address] Phone Care Team Providers Care Special Officer Automat Name Role Phone OZZY COX DO Primary Care Provider [phone] Reason for Visit and Chief Complaint The Chief Complaint is: TOENAIL TRIM Plan of Treatment Evaluated the patient. Discussed treatment options with the patient. Discussed with patient proper care and hygeine for their feet. Patient tolerated procedures well without incident. Procedure: (60770 Debridement of toenails 6-10) Surgically debrided and mechanically reduced 6 or more toenails specifically nails 1-5 left and 1-5 right. Hemmorhage occurred none. . - Last Documented On 06/15/2023 1:41PM ; [facility] ONYCHOMYCOSIS (FUNGUS NAIL) Clinic evidence of mycosis [...] changes (cold feet) - Last Documented On 06/15/2023 1:41PM ; [facility] Pt elects for slant back at this time. RTC PRN - Last Documented On 06/15/2023 1:41PM ; [facility] Instructions to patient Intervention and counseling on cessation of tobacco use Last Documented On 1:31PM ; [facility] Assessments Includes: Assessments from this encounter Findings - [I73.9 - Peripheral vascular disease, unspecified] Peripheral vascular disease - Last Documented On 06/15/2023 1:41PM ; [facility] - [B35.1 - Tinea unguium] Onychomycosis - Last Documented On 06/15/2023 1:41PM ; [facility] - [L60.0 - Ingrowing nail] Ingrowing nail - Last Documented On 06/15/2023 1:41PM ; [facility] - [M79.676 - Pain in unspecified toe(s)] Pain in toe - Last Documented On 06/15/2023 1:41PM ; [facility] Instructions Includes: Instructions from this encounter Instructions to patient Intervention and counseling on cessation of tobacco use Last Documented On 3 1:31PM ; [facility] Medical Equipment - Implanted Devices Includes: Current Devices No Medical Equipment Recorded Medications Includes: Medications discussed during this encounter and other current Medications Current Medications (continue as prescribed) amLODIPine Besylate 5 MG Oral Tablet 12/02/2022 Prov ider: OZZY COX DO Diagnosis: Last Documented On 9:24AM By Corrie TORRES ; [facility] Lisinopril 40 MG Oral Tablet 10/29/2022 Provider: OZZY COX DO Diagnosis: Last Documented On 3 9:25AM By Corrie TORRES ; [facility] Levoxyl 100 MCG Oral Tablet 10/29/2022 Provider: SHEYLA ANGULO MD Diagnosis: Last Documented On 3 9:24AM By Corrie TORRES ; [facility] Adult Aspirin Low Strength 81 MG OR TBDP 01/24/2010 Provider: Diagnosis: Last Documented On 01/24/2010 3:13PM By TONY BERNSTEIN ; [facility] Medications Administered Includes: Administered Medications from this encounter No Administered Medications Recorded Vital Signs Includes: Vital Signs from this encounter Vital Name 06/15/2023 01:31P Blood Pressure Sitting L 122/80 BP Cuff Size Regular Pulse Rate-Sitting (bpm) 90 Respiration Rate (breaths/min) 21 Height (in) 66 Weight (lb) 178 Body Mass Index 28.7 Body Surface Area 1.9 Oxygen Saturation (%) 95 Last Documented: On 06/15/2023 1:32PM ; [facility] Results Includes: Results discussed during this encounter No Results Recorded For Specified Dates History of Present Illness Includes: History of Present Illness from this encounter LA NENA CADE is an 83 year old female. - Allergy list reviewed - Past medical history reviewed - Problem list reviewed - Medication reconciliation performed - Medication list reviewed - Primary Care Provider: OZZY COX - Primary Care Provider: DR OZZY COX Patient is a pleasant 83-year-old female who presents to clinic today for eval of the L 2nd toenail that is painful and ARFC . She reports it is ingrown and very tender. She cannot cut it. Social History Description Last Updated Tobacco non-user 03/17/2023 Last Documented On 3 1:31PM ; [facility] Alcohol use SOCIAL 01/24/2010 Last Documented On 3 1:31PM ; [facility] Cigarette smoking SOCIAL 01/24/2010 Last Documented On 3 1:31PM ; [facility] Non-smoker 01/24/2010 Last Documented On 3 1:31PM ; [facility] Alcohol SOCIAL 01/24/2010 Last Documented On 3 1:31PM ; [facility] Caffeine use 01/24/2010 Last Documented On 3 1:31PM ; [facility] Daily coffee consumption was five cups p er day 01/24/2010 Last Documented On 3 1:31PM ; [facility] Educational level: grade 18 YEARS 2009 Last Documented On 3 1:31PM ; [facility] Exercise frequency was five times/week 0 01/24/2010 Last Documented On 3 1:31PM ; [facility] Jainism affiliation ZOROASTRIANISM 0 Last Documented On 3 1:31PM ; [facility] Sexually active with 1 partners in the l ast year 01/24/2010 Last Documented On 3 1:31PM ; [facility] The racial background WHITE 01/24/2010 Last Documented On 3 1:31PM ; [facility] Tobacco use 01/24/2010 Last Documented On 3 1:31PM ; [facility] Smoking Status Unknown Procedures and Surgical History Includes: Procedures from this encounter Procedures Code Diagnosis Performing Provider Service L ocation Service Date intervention and counseling on cessation of tobacco use 4000F Last Documented On 3 1:31PM ; [facility] use of tobacco assessment performed 1000F Last Documented On 3 1:31PM ; [facility] patient screened for future fall risk: documentation of any fall with injury in past year 1100F Last Documented On 3 1:31PM ; [facility] review of medications documented 1160F Last Documented On 3 1:39PM ; [facility] encouragement to exercise Last Documented On 3 1:39PM ; [facility] Clinical summary provided to patient Last Documented On 3 1:39PM ; [facility] Surgical History Last Updated History of hysterectomy 01/24/2010 Last Documented On 3 1:31PM ; [facility] History of total abdominal hysterectomy 01/24/2010 Last Documented On 3 1:31PM ; [facility] Medical History Includes: Medical History addressed during this encounter Description Last Updated A colonoscopy was performed 2005 010 Last Documented On 3 1:31PM ; [facility] History of benign essential hypertension 01/24/2010 Last Documented On 3 1:31PM ; [facility] History of cervical dysplasia 01/24/2010 Last Documented On 3 1:31PM ; [facility] History of thyroid disorder GRAVES DISEA SE 01/24/2010 Last Documented On 3 1:31PM ; [facility] Last mammogram date: 01/25/2008-02/2010 Last Documented On 3 1:31PM ; [facility] Para 3 01/24/2010 Last Documented On 3 1:31PM ; [facility] Patient recently had a dexa scan 10/26/1901/24/2010 Last Documented On 3 1:31PM ; [facility] comments: VAGINAL 01/24/2010 Last Documented On 3 1:31PM ; [facility] 3 living children 01/24/2010 Last Documented On 3 1:31PM ; [facility] A breast self-exam was performed 010 Last Documented On 3 1:31PM ; [facility] A mammogram was performed 01/24/2010 Last Documented On 3 1:31PM ; [facility] A Pap smear was performed 01/24/2010 Last Documented On 3 1:31PM ; [facility] weight: was nine kg 01/24/2010 Last Documented On 3 1:31PM ; [facility] Duration of labor: was five hr 0 Last Documented On 3 1:31PM ; [facility] Gestational age: was 41 weeks 01/24/2010 Last Documented On 3 1:31PM ; [facility] 3 01/24/2010 Last Documented On 3 1:31PM ; 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/24/2010 Last Documented On 3 1:31PM ; [facility] Previous hospitalizations TING-92 ~THYROI DECTOMY-2000 ~[id number] 01/24/2010 Last Documented On 3 1:31PM ; [facility] Thyroid disease 01/24/2010 Last Documented On 3 1:31PM ; [facility] Family History Includes: Family History addressed during this encounter Description Last Updated Family history of diabetes mellitus MOM SIDE 01/24/2010 Last Documented On 3 1:31PM ; [facility] Family history of Diabetes 01/24/2010 Last Documented On 3 1:31PM ; [facility] Family history of thyroid disease 2009 Last Documented On 3 1:31PM ; [facility] Heart disease 01/24/2010 Last Documented On 3 1:31PM ; [facility] Review of Systems Includes: Review of [...] Encounters Encounter Provider Location Date Check-In Time Check-Out Time Diagnosis CHECK UP VISHNU DIEGOP C [facility] 3 1:22PM 1:40PM Ingrowing Nail,Peripher al Vascular Disease,[place] tophytosis Nails Onychomycosis ,Limb Pain Toe Insurance Includes: Active Insurance Policies Plan Name Member ID Group # Subscriber Relationship Effect melissa Dates 1 - [employer]ET[employer] [id number] JANE CADE Self Clinical Notes Includes: Clinical Notes from this encounter * Progress note Date Encounter Last Documented by 06/15/2023 CHECK UP Last documented on 06/15/2023; 1:41 PM, VISHNU GOMEZ [place] [facility]; [facility] Chief Complaint The Chief Complaint is: TOENAIL TRIM. History of Present Illness JANE CADE is an 83 year old female. 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 Medical: Previous hospitalizations TING-92 THYROIDECTOMY-2000 [id number] and a breast self-exam was performed. Thyroid [...] times/week. Education: Educational level: grade 18 YEARS. Jainism Status: Jainism affiliation ZOROASTRIANISM. Sexual: Sexually active with 1 partners in the last year. Allergies - No Known Allergies Family History Heart disease Thyroid disease Diabetes Diabetes mellitus MOM SIDE Review Of Systems Neurological: No ataxia. Psychological: No fear of falling. Past Medical: No fall in the past 6 months. Physical Findings - Vitals taken 06/15/2023 01:31 pm BP-Sitting L 122/80 mmHg BP Cuff Size Regular Pulse Rate-Sitting 90 bpm Respiration Rate 21 per min Height 66 in Weight 178 lbs Body Mass Index 28.7 kg/m2 Body Surface Area 1.9 m2 Oxygen Saturation 95 % Cardiovascular: DP pulse is palpable left [...] Patient tolerated procedures well without incident. Procedure: (96418 Debridement of toenails 6-10) Surgically debrided and [...] documented. Health Reminders - Assess BMI satisfied 06/15/2023. - Assess Screening for Fall Risk satisfied 06/15/2023. - Assess Tobacco Use satisfied 06/15/2023. - Smoking & Tobacco Cessation Intervention and Counseling satisfied 06/15/2023.
--- OUTSIDE RECORDS SUMMARY | 2024-09-28 16:28 | XMS_ITS | Clinical Summary ---
Author Organization [facility] Address [address] [place] [address] Phone Care Team Providers Care Business Support Specialist Name Role Phone OZZY COX DO Primary Care Provider [phone] Reason for Visit and Chief Complaint The Chief Complaint is: TOENAIL TRIM Plan of Treatment Evaluated the patient. Discussed treatment options with the patient. Discussed with patient proper care and hygeine for their feet. Patient tolerated procedures well without incident. Procedure: (38365 Debridement of toenails 6-10) Surgically debrided and mechanically reduced 6 or more toenails specifically nails 1-5 left and 1-5 right. Hemmorhage occurred none. . - Last Documented On 09/15/2023 2:31PM ; [facility] ONYCHOMYCOSIS (FUNGUS NAIL) Clinic evidence of mycosis [...] changes (cold feet) - Last Documented On 09/15/2023 2:31PM ; [facility] Pt elects for slant back at this time. RTC PRN - Last Documented On 09/15/2023 2:31PM ; [facility] Instructions to patient Intervention and counseling on cessation of tobacco use Last Documented On 4 1:45PM ; [facility] Assessments Includes: Assessments from this encounter Findings - [I73.9 - Peripheral vascular disease, unspecified] Peripheral vascular disease - Last Documented On 09/15/2023 2:31PM ; [facility] - [B35.1 - Tinea unguium] Onychomycosis - Last Documented On 09/15/2023 2:31PM ; [facility] - [L60.0 - Ingrowing nail] Ingrowing nail - Last Documented On 09/15/2023 2:31PM ; [facility] - [M79.676 - Pain in unspecified toe(s)] Pain in toe - Last Documented On 09/15/2023 2:31PM ; [facility] Instructions Includes: Instructions from this encounter Instructions to patient Intervention and counseling on cessation of tobacco use Last Documented On 4 1:45PM ; [facility] Medical Equipment - Implanted Devices Includes: Current Devices No Medical Equipment Recorded Medications Includes: Medications discussed during this encounter and other current Medications Current Medications (continue as prescribed) amLODIPine Besylate 5 MG Oral Tablet 12/02/2022 Prov ider: OZZY COX DO Diagnosis: Last Documented On 3 9:24AM By Corrie TORRES ; [facility] Lisinopril 40 MG Oral Tablet 10/29/2022 Provider: OZZY COX DO Diagnosis: Last Documented On 3 9:25AM By Corrie TORRES ; [facility] Levoxyl 100 MCG Oral Tablet 10/29/2022 Provider: SHEYLA ANGULO MD Diagnosis: Last Documented On 3 9:24AM By Corrie TORRES ; [facility] Adult Aspirin Low Strength 81 MG OR TBDP 01/24/2010 Provider: Diagnosis: Last Documented On 01/24/2010 3:13PM By TONY BERNSTEIN ; [facility] Medications Administered Includes: Administered Medications from this encounter No Administered Medications Recorded Vital Signs Includes: Vital Signs from this encounter Vital Name 09/15/2023 01:47P Blood Pressure Sitting L 122/78 BP Cuff Size Regular Pulse Rate-Sitting (bpm) 76 Respiration Rate (breaths/min) 21 Height (in) 66 Oxygen Saturation (%) 99 Last Documented: On 09/15/2023 1:46PM ; [facility] Results Includes: Results discussed during this encounter [...] Updated Tobacco non-user 03/17/2023 Last Documented On 4 1:45PM ; [facility] Alcohol use SOCIAL 01/24/2010 Last Documented On 4 1:45PM ; [facility] Cigarette smoking SOCIAL 01/24/2010 Last Documented On 4 1:45PM ; [facility] Non-smoker 01/24/2010 Last Documented On 4 1:45PM ; [facility] Alcohol SOCIAL 01/24/2010 Last Documented On 4 1:45PM ; [facility] Caffeine use 01/24/2010 Last Documented On 4 1:45PM ; [facility] Daily coffee consumption was five cups p er day 01/24/2010 Last Documented On 4 1:45PM ; [facility] Educational level: grade 18 YEARS 2009 Last Documented On 4 1:45PM ; [facility] Exercise frequency was five times/week 0 01/24/2010 Last Documented On 4 1:45PM ; [facility] Hinduism affiliation YARSANI 0 Last Documented On 4 1:45PM ; [facility] Sexually active with 1 partners in the l ast year 01/24/2010 Last Documented On 4 1:45PM ; [facility] The racial background WHITE 01/24/2010 Last Documented On 4 1:45PM ; [facility] Tobacco use 01/24/2010 Last Documented On 4 1:45PM ; [facility] Smoking Status Unknown Procedures and Surgical History Includes: Procedures from this encounter Procedures Code Diagnosis Performing Provider Service L ocation Service Date intervention and counseling on cessation of tobacco use 4000F Last Documented On 4 1:45PM ; [facility] use of tobacco assessment performed 1000F Last Documented On 4 1:45PM ; [facility] patient screened for future fall risk: documentation of any fall with injury in past year 1100F Last Documented On 4 1:45PM ; [facility] review of medications documented 1160F Last Documented On 4 2:29PM ; [facility] encouragement to exercise Last Documented On 4 2:29PM ; [facility] Clinical summary provided to patient Last Documented On 4 2:29PM ; [facility] Surgical History Last Updated History of hysterectomy 01/24/2010 Last Documented On 4 1:45PM ; [facility] History of total abdominal hysterectomy 01/24/2010 Last Documented On 4 1:45PM ; [facility] Medical History Includes: Medical History addressed during this encounter Description Last Updated A colonoscopy was performed 2005 010 Last Documented On 4 1:45PM ; [facility] History of benign essential hypertension 01/24/2010 Last Documented On 4 1:45PM ; [facility] History of cervical dysplasia 01/24/2010 Last Documented On 4 1:45PM ; [facility] History of thyroid disorder GRAVES DISEA SE 01/24/2010 Last Documented On 4 1:45PM ; [facility] Last mammogram date: 01/25/2008-02/2010 Last Documented On 4 1:45PM ; [facility] Para 3 01/24/2010 Last Documented On 4 1:45PM ; [facility] Patient recently had a dexa scan 10/26/19 10 01/24/2010 Last Documented On 4 1:45PM ; [facility] comments: VAGINAL 01/24/2010 Last Documented On 4 1:45PM ; [facility] 3 living children 01/24/2010 Last Documented On 4 1:45PM ; [facility] A breast self-exam was performed 010 Last Documented On 4 1:45PM ; [facility] A mammogram was performed 01/24/2010 Last Documented On 4 1:45PM ; [facility] A Pap smear was performed 01/24/2010 Last Documented On 4 1:45PM ; [facility] weight: was nine kg 01/24/2010 Last Documented On 4 1:45PM ; [facility] Duration of labor: was five hr 0 Last Documented On 4 1:45PM ; [facility] Gestational age: was 41 weeks 01/24/2010 Last Documented On 4 1:45PM ; [facility] 3 01/24/2010 Last Documented On 4 1:45PM ; [facility] High cholesterol 01/24/2010 Last Documented On 4 1:45PM ; [facility] History of the 3rd : 01/24/2010 Last Documented On 4 1:45PM ; [facility] Hypertension 01/24/2010 Last Documented On 4 1:45PM ; [facility] Last pap smear date 09/25/2007 01/24/2010 Last Documented On 4 1:45PM ; [facility] 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 01/24/2010 Last Documented On 4 1:45PM ; [facility] Previous hospitalizations TING-92 ~THYROI DECTOMY-2001 ~[id number] 01/24/2010 Last Documented On 4 1:45PM ; [facility] Thyroid disease 01/24/2010 Last Documented On 4 1:45PM ; [facility] Family History Includes: Family History addressed during this encounter Description Last Updated Family history of diabetes mellitus MOM SIDE 01/24/2010 Last Documented On 4 1:45PM ; [facility] Family history of Diabetes 01/24/2010 Last Documented On 4 1:45PM ; [facility] Family history of thyroid disease 2009 Last Documented On 4 1:45PM ; [facility] Heart disease 01/24/2010 Last Documented On 4 1:45PM ; [facility] Review of Systems Includes: Review of Systems [...] Time Diagnosis CHECK UP VISHNU DIEGOP C [facility] 4 1:05PM 1:55PM Ingrowing Nail,Peripher al Vascular Disease,[place] tophytosis Nails Onychomycosis ,Limb Pain Toe Insurance Includes: Active Insurance Policies Plan Name Member ID Group # Subscriber Relationship Effect melissa Dates 1 - [employer] [id number] JANE CADE Self Clinical Notes Includes: Clinical Notes from this encounter * Progress note Date Encounter Last Documented by 09/15/2023 CHECK UP Last documented on 09/15/2023; 2:31 PM, VISHNU GOMEZ DENTAL SPECIALIST C; [facility] Chief Complaint The Chief [...] 0 refills Past Medical/Surgical History Reported: 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 Medical: Previous hospitalizations TING-92 THYROIDECTOMY-2000 [id number] and a breast self-exam was performed. Thyroid [...] times/week. Education: Educational level: grade 18 YEARS. Hinduism Status: Hinduism affiliation YARSANI. Sexual: Sexually active with 1 partners in the last year. Allergies - No Known Allergies Family History Heart disease Thyroid disease Diabetes Diabetes mellitus MOM SIDE Review Of Systems Neurological: No ataxia. Psychological: No fear of falling. Past Medical: No fall in the past 6 months. Physical Findings - Vitals taken 09/15/2023 01:47 pm BP-Sitting L 122/78 mmHg BP Cuff Size Regular Pulse Rate-Sitting 76 bpm Respiration Rate 21 per min Height 66 in Oxygen Saturation 99 % Cardiovascular: DP pulse [...] Patient tolerated procedures well without incident. Procedure: (12067 Debridement of toenails 6-10) Surgically debrided and [...] of medications documented. Health Reminders - Assess Screening for Fall Risk satisfied 09/15/2023. - Assess Tobacco Use satisfied 09/15/2023. - Smoking & Tobacco Cessation Intervention and Counseling satisfied 09/15/2023.
--- OUTSIDE RECORDS SUMMARY | 2024-09-28 16:28 | XMS_ITS | Clinical Summary ---
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 Discussed treatment options with the patient. Discussed with patient proper care and hygeine for their feet. Patient tolerated procedures well without incident. Procedure: (45146 Debridement of toenails 6-10) Surgically debrided and mechanically reduced 6 or more toenails specifically nails 1-5 left and 1-5 right. Hemmorhage occurred none. . - Last Documented On 12/07/2023 10:30AM ; [facility] ONYCHOMYCOSIS (FUNGUS NAIL) Clinic evidence of [...] changes (cold feet) - Last Documented On 12/07/2023 10:30AM ; [facility] Pt elects for slant back at this time. RTC PRN - Last Documented On 12/07/2023 10:30AM ; [facility] Instructions to patient Intervention and counseling on cessation of tobacco use Last Documented On 4 9:31AM ; [facility] Assessments Includes: Assessments from this encounter Findings - [I73.89 - Other specified peripheral vascular diseases] Peripheral vascular disease - Last Documented On 12/07/2023 10:30AM ; [facility] - [B35.1 - Tinea unguium] Onychomycosis - Last Documented On 12/07/2023 10:30AM ; [facility] - [L60.0 - Ingrowing nail] Ingrowing nail - Last Documented On 12/07/2023 10:30AM ; [facility] - [M79.676 - Pain in unspecified toe(s)] Pain in toe - Last Documented On 12/07/2023 10:30AM ; [facility] Instructions Includes: Instructions from this encounter Instructions to patient Intervention and counseling on cessation of tobacco use Last Documented On 4 9:31AM ; [facility] Medical Equipment - Implanted Devices Includes: Current Devices No Medical Equipment Recorded Medications Includes: Medications discussed during this encounter and other current Medications Current Medications (continue as prescribed) amLODIPine Besylate 5 MG Oral Tablet 12/02/2022 Prov ider: OZZY COX DO Diagnosis: Last Documented On 3 9:24AM By Corrie TORRES ; [facility] Lisinopril 40 MG Oral Tablet 10/29/2022 Provider: OZZY COX DO Diagnosis: Last Documented On 3 9:25AM By Corrie TORRES ; [facility] Levoxyl 100 MCG Oral Tablet 10/29/2022 Provider: SHEYLA ANGULO MD Diagnosis: Last Documented On 3 9:24AM By Corrie TORRES ; [facility] Adult Aspirin Low Strength 81 MG OR TBDP 01/24/2010 Provider: Diagnosis: Last Documented On 01/24/2010 3:13PM By TONY BERNSTEIN ; [facility] Medications Administered Includes: Administered Medications from this encounter No Administered Medications Recorded Vital Signs Includes: Vital Signs from this encounter Vital Name 12/07/2023 09:31A Blood Pressure Sitting L 128/74 BP Cuff Size Regular Pulse Rate-Sitting (bpm) 73 Respiration Rate (breaths/min) 18 Height (in) 66 Weight (lb) 173.5 Body Mass Index 28 Body Surface Area 1.9 Oxygen Saturation (%) 98 Last Documented: On 12/07/2023 9:31AM ; [facility] Results Includes: Results discussed during this [...] cut it. Social History Description Last Updated Current smoker 06/10/2022 Last Documented On 4 9:30AM ; [facility] Alcohol use SOCIAL 01/24/2010 Last Documented On 4 9:30AM ; [facility] Cigarette smoking SOCIAL 01/24/2010 Last Documented On 4 9:30AM ; [facility] Non-smoker 01/24/2010 Last Documented On 4 9:30AM ; [facility] Alcohol SOCIAL 01/24/2010 Last Documented On 4 9:30AM ; [facility] Caffeine use 01/24/2010 Last Documented On 4 9:30AM ; [facility] Daily coffee consumption was five cups p er day 01/24/2010 Last Documented On 4 9:30AM ; [facility] Educational level: grade 18 YEARS 2009 Last Documented On 4 9:30AM ; [facility] Exercise frequency was five times/week 0 01/24/2010 Last Documented On 4 9:30AM ; [facility] 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 0 Last Documented On 4 9:30AM ; [facility] Sexually active with 1 partners in the l ast year 01/24/2010 Last Documented On 4 9:30AM ; [facility] The racial background WHITE 01/24/2010 Last Documented On 4 9:30AM ; [facility] Tobacco use 01/24/2010 Last Documented On 4 9:30AM ; [facility] Smoking Status Unknown Procedures and Surgical History Includes: Procedures from this encounter Procedures Code Diagnosis Performing Provider Service Location Service Date DEBRIDEMENT NAILS(S) ANY METHOD 6 OR MORW 23287 Ingrowing nail, Pain in unspecified toe(s), Tinea unguium, Other specified peripheral vascular diseases VISHNU A ONTIS MANAGER MOBILE C [facility] 12/07/2023 Last Documented On 4 12:33PM ; [facility] DEBRIDEMENT NAIL(S) ANY METHOS 6 OR MORE 77846 Ingrowing nail, Pain in unspecified toe(s), Tinea unguium, Other specified peripheral vascular diseases VISHNU A CECILIAIS MANAGER MOBILE C [facility] 12/07/2023 Last Documented On 4 12:33PM ; [facility] intervention and counseling on cessation of toba key account representative use 4000F Last Documented On 4 9:31AM ; [facility] use of tobacco assessment performed 1000F Last Documented On 4 9:31AM ; [facility] patient screened for future fall risk: documentation of any fall with injury in past year 1100F Last Documented On 4 9:31AM ; [facility] review of medications documented 1160F Last Documented On 4 10:28AM ; [facility] encouragement to exercise Last Documented On 4 10:28AM ; [facility] Clinical summary provided to patient Last Documented On 4 10:28AM ; [facility] Surgical History Last Updated History of hysterectomy 01/24/2010 Last Documented On 4 9:30AM ; [facility] History of total abdominal hysterectomy 01/24/2010 Last Documented On 4 9:30AM ; [facility] Medical History Includes: Medical History addressed during this encounter Description Last Updated A colonoscopy was performed 2005 Last Documented On 4 9:30AM ; [facility] History of benign essential hypertension 01/24/2010 Last Documented On 4 9:30AM ; [facility] History of cervical dysplasia 01/24/2010 Last Documented On 4 9:30AM ; [facility] History of thyroid disorder GRAVES DISEA SE 01/24/2010 Last Documented On 4 9:30AM ; [facility] Last mammogram date: 01/25/2008-02/2010 Last Documented On 4 9:30AM ; [facility] Para 3 01/24/2010 Last Documented On 4 9:30AM ; [facility] Patient recently had a dexa scan 10/26/19 10 01/24/2010 Last Documented On 4 9:30AM ; [facility] comments: VAGINAL 01/24/2010 Last Documented On 4 9:30AM ; [facility] 3 living children 01/24/2010 Last Documented On 4 9:30AM ; [facility] A breast self-exam was performed Last Documented On 4 9:30AM ; [facility] A mammogram was performed 01/24/2010 Last Documented On 4 9:30AM ; [facility] A Pap smear was performed 01/24/2010 Last Documented On 4 9:30AM ; [facility] weight: was nine kg 01/24/2010 Last Documented On 4 9:30AM ; [facility] Duration of labor: was five hr 0 Last Documented On 4 9:30AM ; [facility] Gestational age: was 41 weeks 01/24/2010 Last Documented On 4 9:30AM ; [facility] 3 01/24/2010 Last Documented On 4 9:30AM ; [facility] High cholesterol 01/24/2010 Last Documented On 4 9:30AM ; [facility] History of the 3rd : 01/24/2010 Last Documented On 4 9:30AM ; [facility] Hypertension 01/24/2010 Last Documented On 4 9:30AM ; [facility] Last pap smear date 09/25/2007 01/24/2010 Last Documented On 4 9:30AM ; [facility] 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 01/24/2010 Last Documented On 4 9:30AM ; [facility] Previous hospitalizations TING-92 ~THYROI DECTOMY-2001 ~[id number] 01/24/2010 Last Documented On 4 9:30AM ; [facility] Thyroid disease 01/24/2010 Last Documented On 4 9:30AM ; [facility] Family History Includes: Family History addressed during this encounter Description Last Updated Family history of diabetes mellitus MOM SIDE 01/24/2010 Last Documented On 4 9:30AM ; [facility] Family history of Diabetes 01/24/2010 Last Documented On 4 9:30AM ; [facility] Family history of thyroid disease 2009 Last Documented On 4 9:30AM ; [facility] Heart disease 01/24/2010 Last Documented On 4 9:30AM ; [facility] Review of Systems Includes: Review of [...] Time Check-Out Time Diagnosis CHECK UP VISHNU Aaron Modi [facility] 4 9:21AM 9:41AM Ingrowing Nail,Peripher al Vascular Disease,Harrison tophytosis Nails Onychomycosis ,Limb Pain Toe Insurance Includes: Active Insurance Policies Plan Name Member ID Group # Subscriber Relationship Effect melissa Dates 1 - [employer] [id number] JANE CADE Self Clinical Notes Includes: Clinical Notes from this encounter * Progress note Date Encounter Last Documented by 12/07/2023 CHECK UP Last documented on 12/07/2023; 10:30 AM, VISHNU Modi; [facility] Chief Complaint The Chief [...] 0 refills Past Medical/Surgical History Reported: 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 Medical: Previous hospitalizations TING-92 THYROIDECTOMY-2000 [id number] and a breast self-exam was performed. Thyroid [...] times/week. Education: Educational level: grade 18 YEARS. Jew Status: 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. Sexual: Sexually active with 1 partners in [...] Patient tolerated procedures well without incident. Procedure: (72721 Debridement of toenails 6-10) Surgically debrided and [...]
--- OUTSIDE RECORDS SUMMARY | 2024-09-28 16:28 | XMS_ITS | Clinical Summary ---
Author Organization [facility] Address [address] 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 30 Tablet 2 07/04/2022 11:39 AM [employer]AN 06/23/20 22 Active levothyroxine 100 mcg tablet Take 1 Tablet (100 mcg) by mouth daily. 90 Tablet 3 04/27/2023 9:56 AM CDT 07/24/19 23 Active azithromycin (ZITHROMAX) 250 mg tablet TAKE 2 TABLETS BY MOUTH 1 DOSE ON DAY 1, THEN TAKE 1 TABLET ONCE DAILY ON DAYS 2 THRU 5. 6 Tablet 12/02/2022 12:14 PM CDT 12/03/19 23 Active benzonatate (TESSALON) 200 mg capsule Take 1 Capsule (200 mg) by mouth 2 times daily as needed for cough 20 Capsule 1 10/22/2023 4:56 PM CDT 12/03/19 23 Active levothyroxine 100 mcg tablet Take 1 Tablet (100 mcg) by mouth daily. 90 Tablet 3 04/18/2024 12:11 PM CDT 07/30/19 24 Active ketorolac tromethamine (ACULAR) 0.5 % solution Administer 1 drop to the right eye 3 times daily beginning 3 days BEFORE surgery. 5 mL 08/31/2023 11:22 AM STUDENT [employer] DEAN 08/27/19 24 Active prednisoLONE acetate (PRED FORTE) 1 % suspension Administer 1 drop to right eye 3 times daily beginning the day AFTER surgery. 5 mL 08/31/2023 11:22 AM [employer]UD[employer]AN 08/27/19 24 Active amLODIPine (NORVASC) 5 mg tablet Take 1 Tablet (5 mg) by mouth daily. 90 Tablet 3 07/02/2024 9:53 AM STUDENT SERVICES DEAN 09/23/19 24 Active lisinopriL (PRINIVIL) 40 mg tablet Take 1 Tablet (40 mg) by mouth daily. 90 Tablet 3 08/24/2024 8:13 AM STUDENT [employer] DEAN 11/09/19 24 Active scopolamine (TRANSDERM-SCOP) 1 mg/72 hr patch Apply 1 patch transdermally every 3 days as needed for motion sickness. 4 Patch 02/15/2024 12:25 PM CDT 02/15/20 24 Active levothyroxine 100 mcg tablet Take 1 Tablet (100 mcg) by mouth daily. 90 Tablet 3 08/10/19 25 Active Encounters Date Type Department Care Team Description 09/06/2024 External Device Data [facility] ABSTRACTION Provider, Abstract 08/11/2024 External Device Data [facility] Provider, Abstract 08/10/2024 External Device Data [facility] Provider, Abstract 08/09/2024 External Device Data [facility]CTION Provider, Abstract from Last 3 Months Social History Tobacco Use Types Packs/Day Years Used Date Smoking Tobacco: Never Assessed Comments Unknown Sex and Gender Information Value Date Recorded Sex Assigned at Not on file Legal Sex Female 3:50 AM [employer]UD[employer]AN Gender Identity Not on file Sexual Orientation Not on file Plan of Treatment Health Maintenance Due Date Last Done Comments DTAP/TDAP/TD VACCINES (1 - Tdap) 1961 PNEUMOCOCCAL VACCINE 50+ YEARS (1 of 1 - PCV) 05/23/19 92 ZOSTER VACCINE (1 of 2) 1992 OSTEOPOROSIS SCREENING 2007 RSV VACCINE (60+ or ) (1 - 1-dose 75+ series) 2017 INFLUENZA VACCINE (#1) 2024 Insurance RX AET[employer] Medicare Part D RX [employer] (INTERNAL) [facility] Care Teams 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 [place] [address] PCP - General 09/29/01
--- OUTSIDE RECORDS SUMMARY | 2024-09-28 16:28 | XMS_ITS | Clinical Summary ---
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 Discussed treatment options with the patient. Discussed with patient proper care and hygeine for their feet. Patient tolerated procedures well without incident. Procedure: (89056 Debridement of toenails 6-10) Surgically debrided and mechanically reduced 6 or more toenails specifically nails 1-5 left and 1-5 right. Hemmorhage occurred none. . - Last Documented On 12/17/2022 1:39PM ; [facility] ONYCHOMYCOSIS (FUNGUS NAIL) [...] changes (cold feet) - Last Documented On 12/17/2022 1:39PM ; [facility] Instructions to patient Intervention and counseling on cessation of tobacco use Last Documented On 9:27AM ; [facility] Assessments Includes: Assessments from this encounter Findings - [I73.9 - Peripheral vascular disease, unspecified] Peripheral vascular disease - Last Documented On 12/17/2022 1:39PM ; [facility] - [B35.1 - Tinea unguium] Onychomycosis - Last Documented On 12/17/2022 1:39PM ; [facility] - [L60.1 - Onycholysis] ONYCHOLYSIS - Last Documented On 12/17/2022 1:39PM ; [facility] - [M79.676 - Pain in unspecified toe(s)] Pain in toe - Last Documented On 12/17/2022 1:39PM ; [facility] Instructions Includes: Instructions from this encounter Instructions to patient Intervention and counseling on cessation of tobacco use Last Documented On 3 9:27AM ; [facility] Medical Equipment - Implanted Devices Includes: Current Devices No Medical Equipment Recorded Medications Includes: Medications discussed during this encounter and other current Medications Discontinued / Stopped on this date OZZY COX DO on 12/02/2022 Benzonatate 200 MG Oral Capsule Provider: OZZY COX DO Diagnosis: Last Documented On 3 9:24AM By Corrie TORRES ; [facility] Azithromycin 250 MG Oral Tablet Provider: OZZY COX DO Diagnosis: Last Documented On 3 9:25AM By Corrie TORRES ; [facility] Levoxyl 100 MCG Oral Tablet Provider: Diagnosis: Last Documented On 3 9:25AM By Corrie TORRES ; [facility] amLODIPine Besylate 2.5 MG Oral Tablet Pr ovider: COSTA GARCIA Diagnosis: Last Documented On 3 9:24AM By Corrie TORRES ; [facility] Lisinopril 40 MG Oral Tablet Provider: Diagnosis: Last Documented On 3 9:25AM By Corrie TORRES ; [facility] Estrace 0.1 MG/GM VA CREA Provider: DEMARCO MARC-BC,CNM Diagnosis: Last Documented On 3 9:25AM By Corrie TORRES ; [facility] Current Medications (continue as prescribed) amLODIPine Besylate 5 MG Oral Tablet 12/02/2022 Prov ider: OZZY COX DO Diagnosis: Last Documented On 3 9:24AM By Corrie TORRES ; [facility] Lisinopril 40 MG Oral Tablet 10/29/2022 Provider: OZZY COX DO Diagnosis: Last Documented On 3 9:25AM By Corrie TORRES ; [facility] Levoxyl 100 MCG Oral Tablet 10/29/2022 Provider: SHEYLA ANGULO MD Diagnosis: Last Documented On 3 9:24AM By Corrie TORRES ; [facility] Adult Aspirin Low Strength 81 MG OR TBDP 01/24/2010 Provider: Diagnosis: Last Documented On 01/24/2010 3:13PM By TONY BERNSTEIN ; [facility] Medications Administered Includes: Administered Medications from this encounter No Administered Medications Recorded Vital Signs Includes: Vital Signs from this encounter Vital Name 12/17/2022 09:27A Blood Pressure Sitting L 136/70 Pulse Rate-Sitting (bpm) 70 Respiration Rate (breaths/min) 20 Height (in) 66 Weight (lb) 193 Body Mass Index 31.2 Body Surface Area 2 Oxygen Saturation (%) 95 Last Documented: On 12/17/2022 9:28AM ; [facility] Results Includes: Results discussed during [...] female who presents to clinic today for ARFC. Patient has painful thickened elongated toenails that are difficult to cut. They cause pain with ambulation. Patient states that her bilateral second toe is causing her pain on the medial nail border. Social History Description Last Updated Tobacco non-user 12/17/2022 Last Documented On 3 1:39PM ; [facility] Alcohol use SOCIAL 01/24/2010 Last Documented On 3 9:26AM ; [facility] Cigarette smoking SOCIAL 01/24/2010 Last Documented On 3 9:26AM ; [facility] Non-smoker 01/24/2010 Last Documented On 3 9:26AM ; [facility] Alcohol SOCIAL 01/24/2010 Last Documented On 3 9:26AM ; [facility] Caffeine use 01/24/2010 Last Documented On 3 9:26AM ; [facility] Daily coffee consumption was five cups p er day 01/24/2010 Last Documented On 3 9:26AM ; [facility] Educational level: grade 18 YEARS 2009 Last Documented On 3 9:26AM ; [facility] Exercise frequency was five times/week 0 01/24/2010 Last Documented On 3 9:26AM ; [facility] Church affiliation [employer] 0 Last Documented On 3 9:26AM ; [facility] Sexually active with 1 partners in the l ast year 01/24/2010 Last Documented On 3 9:26AM ; [facility] The racial background WHITE 01/24/2010 Last Documented On 3 9:26AM ; [facility] Tobacco use 01/24/2010 Last Documented On 3 9:26AM ; [facility] Smoking Status Unknown Procedures and Surgical History Includes: Procedures from this encounter Procedures Code Diagnosis Performing Provider Service L ocation Service Date intervention and counseling on cessation of tobacco use 4000F Last Documented On 3 9:27AM ; [facility] use of tobacco assessment performed 1000F Last Documented On 3 1:38PM ; [facility] patient screened for future fall risk: documentation of any fall with injury in past year 1100F Last Documented On 3 9:27AM ; [facility] review of medications documented 1160F Last Documented On 3 1:38PM ; [facility] encouragement to exercise Last Documented On 3 1:38PM ; [facility] Clinical summary provided to patient Last Documented On 3 1:38PM ; [facility] Surgical History Last Updated History of hysterectomy 01/24/2010 Last Documented On 3 9:26AM ; [facility] History of total abdominal hysterectomy 01/24/2010 Last Documented On 3 9:26AM ; [facility] Medical History Includes: Medical History addressed during this encounter Description Last Updated A colonoscopy was performed 2006 010 Last Documented On 3 9:26AM ; [facility] History of benign essential hypertension 01/24/2010 Last Documented On 3 9:26AM ; [facility] History of cervical dysplasia 01/24/2010 Last Documented On 3 9:26AM ; [facility] History of thyroid disorder GRAVES DISEA SE 01/24/2010 Last Documented On 3 9:26AM ; [facility] Last mammogram date: 01/25/2008-02/2010 Last Documented On 3 9:26AM ; [facility] Para 3 01/24/2010 Last Documented On 3 9:26AM ; [facility] Patient recently had a dexa scan 10/26/19 10 01/24/2010 Last Documented On 3 9:26AM ; [facility] comments: VAGINAL 01/24/2010 Last Documented On 3 9:26AM ; [facility] 3 living children 01/24/2010 Last Documented On 3 9:26AM ; [facility] A breast self-exam was performed 010 Last Documented On 3 9:26AM ; [facility] A mammogram was performed 01/24/2010 Last Documented On 3 9:26AM ; [facility] A Pap smear was performed 01/24/2010 Last Documented On 3 9:26AM ; [facility] weight: was nine kg 01/24/2010 Last Documented On 3 9:26AM ; [facility] Duration of labor: was five hr 0 Last Documented On 3 9:26AM ; [facility] Gestational age: was 41 weeks 01/24/2010 Last Documented On 3 9:26AM ; [facility] 3 01/24/2010 Last Documented On 3 9:26AM ; [facility] High cholesterol 01/24/2010 Last Documented On 3 9:26AM ; [facility] History of the 3rd : 01/24/2010 Last Documented On 3 9:26AM ; [facility] Hypertension 01/24/2010 Last Documented On 3 9:26AM ; [facility] Last pap smear date 09/25/2007 01/24/2010 Last Documented On 3 9:26AM ; [facility] 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 01/24/2010 Last Documented On 3 9:26AM ; [facility] Previous hospitalizations TING-92 ~THYROI DECTOMY-2001 ~[id number] 01/24/2010 Last Documented On 3 9:26AM ; [facility] Thyroid disease 01/24/2010 Last Documented On 3 9:26AM ; [facility] Family History Includes: Family History addressed during this encounter Description Last Updated Family history of diabetes mellitus MOM SIDE 01/24/2010 Last Documented On 3 9:26AM ; [facility] Family history of Diabetes 01/24/2010 Last Documented On 3 9:26AM ; [facility] Family history of thyroid disease 2009 Last Documented On 3 9:26AM ; [facility] Heart disease 01/24/2010 Last Documented On 3 9:26AM ; [facility] Review of Systems Includes: Review of [...] Time Check-Out Time Diagnosis CHECK UP VISHNU Modi [facility] 12/18/19 23 9:14AM 9:31AM Dermatophytosis Nails Onychomycosis,Limb Pain Toe,Onycholysis,Pe ripheral Vascular Disease Insurance Includes: Active Insurance Policies Plan Name Member ID Group # Subscriber Relationship Effect melissa Dates - TNA [id number] JANE CADE Self Clinical Notes Includes: Clinical Notes from this encounter * Progress note Date Encounter Last Documented by 12/17/2022 CHECK UP Last documented on 12/17/2022; 1:39 PM, VISHNU Modi; [facility] Chief Complaint The Chief Complaint is: [...] female who presents to clinic today for ARFC. Patient has painful thickened elongated toenails that are difficult to cut. They cause pain with ambulation. Patient states that her bilateral second toe is causing her pain on the medial nail border. 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 Medical: Previous hospitalizations TING-92 THYROIDECTOMY-2000 [id number] and a breast self-exam was performed. Thyroid [...] times/week. Education: Educational level: grade 18 YEARS. Church Status: Church affiliation [employer]. Sexual: Sexually active with 1 partners in the last year. Allergies - No Known Allergies Family History Heart disease Thyroid disease Diabetes Diabetes mellitus MOM SIDE Review Of Systems Neurological: No ataxia. Psychological: No fear of falling. Past Medical: No fall in the past 6 months. Physical Findings - Vitals taken 12/17/2022 09:27 am BP-Sitting L 136/70 mmHg Pulse Rate-Sitting 70 bpm Respiration Rate 20 per min Height 66 in Weight 193 lbs Body Mass Index 31.2 kg/m2 Body Surface Area 2 m2 Oxygen Saturation 95 % Cardiovascular: DP [...] - [B35.1 - Tinea unguium] Onychomycosis - [L60.1 - Onycholysis] ONYCHOLYSIS - [M79.676 - Pain in unspecified toe(s)] Pain in toe Therapy - Encouragement to exercise. - Intervention and counseling on cessation of tobacco use. - Clinical summary provided to patient. Plan Evaluated the patient. Discussed treatment options with the patient. Discussed with patient proper care and hygeine for their feet. Patient tolerated procedures well without incident. Procedure: (89107 Debridement of toenails 6-10) Surgically debrided and [...] Paresthesia (numbness, tingling) Temperature changes (cold feet) Practice Management Use of tobacco assessment performed and patient screened for future fall risk documentation of any fall with injury in past year Review of medications documented. Health Reminders - Assess BMI satisfied 12/17/2022. - Assess Screening for Fall Risk satisfied 12/17/2022. - Assess Tobacco Use satisfied 12/17/2022. - Follow Up Plan BMI Management satisfied 12/17/2022. - Smoking & Tobacco Cessation Intervention and Counseling satisfied 12/17/2022.
--- OUTSIDE RECORDS SUMMARY | 2024-09-28 16:28 | XMS_ITS | Patient Health Summary ---
Author Organization [facility] Address [address] [place] [address] Care Team Providers Care Forest Fire Fighters Dispatcher Name Role Phone Avril Mau L DO Primary Care Provider [phone] Mike Stanley MD Unavailable [phone] Note from [facility],non-owned Affiliates and Associated Physician Practices is amultiple site organization consisting of ambulatory clinics and hospital sitesin [place], [place], [place] and [place]. This disclosure is being madepursuant to the Care Everywhere program and may not contain all information available regarding this patient. Last updated 18.[facility] Allergies No known active allergies Medications * Be aware that medications may not be up to date on this document. Alwaysverify current medications with the patient. * lisinopril (PRINIVIL; ZESTRIL) 20 MG tablet(Started 01/07/2015) Take 20 mg by mouth once daily * SYNTHROID 112 MCG tablet(Started 11/18/2014) Take 112 mcg by mouth once daily * desloratadine (CLARINEX) 5 MG tablet(Started 01/07/2015) Take 5 mg by mouth once daily * aspirin (ASPIRIN) 81 MG tablet Take 81 mg by mouth once daily * celecoxib (CELEBREX) 200 MG capsule(Started 01/11/2015) Take 1 Cap by mouth 2 times daily 2 refills left * ciprofloxacin (CIPRO) 500 MG tablet(Started 09/24/2017) Active Problems Problem Noted Date Diagnosed Date Primary osteoarthritis of right knee 10/09/2017 Resolved Problems Problem Noted Date Diagnosed Date Resolved Date Osteoarthrosis involving lower leg 01/11/2015 10/09/2017 Social History Tobacco Use Types Packs/Day Years Used Date Smoking Tobacco: Unknown Alcohol Use Standard Drinks/Week Comments Yes 0 (1 standard drink = 0.6 oz pur e alcohol) Sex and Gender Information Value Date Recorded Sex Assigned at Not on file Gender Identity Not on file Sexual Orientation Not on file Last Filed Vital Signs Vital Sign Reading Time Taken Comments Blood Pressure - - Pulse - - Temperature - - Respiratory Rate - - Oxygen Saturation - - Inhaled Oxygen Concentration - - Weight 90.7 kg (200 lb) 10/09/2017 10:59 AM CDT Height 167.6 cm (5' 6 ) 10/09/2017 10:59 AM CDT Body Mass Index 32.28 10/09/2017 10:59 AM CDT Procedures * DERMATOPATHOLOGY(Performed 12/25/2020) * DERMATOPATHOLOGY(Performed 12/13/2020) * DERMATOPATHOLOGY(Performed 08/16/2020) * DERMATOPATHOLOGY(Performed 05/07/2020) * XR KNEE RIGHT 3VW(Performed 01/11/2015) Performed for Knee pain, right Results * DERMATOPATHOLOGY (12/25/2020 3:33 AM CDT) Only the most recent of4 resultswithin the time period is included. Case Report Dermatopathology Report Case: [id number] Authorizing Provider: Helen Richards MD Collected: 12/25/2020 03:33 AM Ordering Location: [facility] Received: 12/26/2020 07:20 AM Pathologist: Colleen Cheung MD Specimen: Skin, left neck 12:52 PM CDT DERMATOPATHOLOGY LABORATORY Final Diagnosis Specimen A. SKIN, left neck: DERMAL SCAR RESIDUAL SQUAMOUS CELL CARCINOMA NOT IDENTIFIED (L90.5) 12:52 PM CDT DERMATOPATHOLOGY LABORATORY Clinical History SCC. 12:52 PM CDT DERMATOPATHOLOGY LABORATORY Gross Description Specimen A: Received is one formalin filled container labeled with the patient's name and designated left neck.The specimen consists of an ellipse measuring [id number] and is oriented with the suture/notch at the 12 o'clock position labeled on the requisition as superior. The 12 to 6 o'clock margin is inked green. The 6 o'clock to 12 o'clock margin is inked black. The 12 o'clock tip is submitted in cassette 1. The 6 o'clock tip is submitted in cassette 2. The remainder of the ellipse is serially sectioned and submitted in cassettes 3-4. Jar 0. 1 12:52 PM CDT DERMATOPATHOLOGY LABORATORY Microscopic Description Specimen A. SKIN, left neck: There are fibroblasts and collagen bundles oriented parallel to the skin surface. There are elongated blood vessels, some of which are oriented perpendicular to the skin surface. No residual squamous cell carcinoma is identified. 12:52 PM CDT DERMATOPATHOLOGY LABORATORY Disclaimer An external and internal positive and negative controls are appropriate for the histochemical, immunohistochemical and immunofluorescence stain(s) in this case (if any), except where stated explicitly. The performance characteristics of the stain(s) cited in this report were developed and its performance characteristic determined by the Dermatopathology Laboratory at [facility], directed by Dr. Joel Nunn. These tests need not be, and therefore are not, approved by the [place] Food and Drug Administration. The tests are used for clinical purposes. Billing Codes Specimen Charges Stain Charges 26273 1 12:52 PM CDT DERMATOPATHOLOGY LABORATORY Embedded Images 12:52 PM CDT DERMATOPATHOLOGY LABORATORY Pathology/Cytolo gy TISSUE SPECIMEN FROM SKIN / Unknown 12/25/2020 3:33 AM CDT 12/26/2020 7:20 AM CDT Helen Richards MD LAB - PATHOLOGY/CYTO LOGY ORDERABLES DERMATOPATHOLOGY LABORATORY [facility] - Department of Dermatology [address], [address] [phone] * XR KNEE 3 VW RIGHT (01/11/2015 1:45 PM CDT) Anatomical Region Laterality Modality Lower Extremity Radiographic Ifrah ging Narrative 01/11/2015 4:27 PM CDT Beatriz Miller, RT(R) 01/11/2015 4:27 PM See progress notes for results Mike Stanley MD [facility] Care Teams [employer] Dispatcher Relationship Specialty Start Date End Date Mau Mackenzie DO [address] [place] [address] PCP - General Internal Medicine 11/24/14 [place] [id number] [facility] [address] [place] [address] [phone] Orthopedic Surgery 01/11/15
--- OUTSIDE RECORDS SUMMARY | 2024-09-28 16:28 | XMS_ITS | Referral Summary ---
Author Organization [facility] Address [address] [place] [address] Care Team Providers Care Reproduction Production Manager Name Role Phone Avril Mau L DO Primary Care Provider [phone] Mike Stanley MD Unavailable Source Comments [facility],non-owned Affiliates and Associated Physician Practices is amultiple site organization consisting of ambulatory clinics and hospital sitesin [place], [place], [place] and [place]. This disclosure is being madepursuant to the Care Everywhere program and may not contain all information available regarding this patient. Last updated 18.[facility] [employer] Allergies No known active allergies Medications * Be aware that medications may not be up to date on this document. Alwaysverify current medications with the patient. Medication Sig Dispensed Refills Start Date End Date Status lisinopril (PRINIVIL; ZESTRIL) 20 MG tablet Take 20 mg by mouth once daily 01/07/2015 Active SYNTHROID 112 MCG tablet Take 112 mcg by mouth once daily 11/18/2014 Active desloratadine (CLARINEX) 5 MG tablet Take 5 mg by mouth once daily 01/07/2015 Active aspirin (ASPIRIN) 81 MG tablet Take 81 mg by mouth once daily Active celecoxib (CELEBREX) 200 MG capsule Take 1 Cap by mouth 2 times daily 180 Cap 2 01/11/2015 Active ciprofloxacin (CIPRO) 500 MG tablet 09/24/2017 Active Active Problems Problem Noted Date Diagnosed Date Primary osteoarthritis of right knee 10/09/2017 Resolved Problems Problem Noted Date Diagnosed Date Resolved Date Osteoarthrosis involving lower leg 01/11/2015 10/09/2017 Overview (10/13/2015): 2015 IMO Updt Social History Tobacco Use Types Packs/Day Years [...] Mass Index 32.28 10/09/2017 10:59 AM CDT Plan of Treatment Not on file Care Teams Reproduction Production Manager Relationship Specialty Start Date End Date Mau Mackenzie DO [address] [place] [address] PCP - General Internal Medicine 11/24/14 [place] [address] [place] [address] Orthopedic Surgery 01/11/15
--- OUTSIDE RECORDS SUMMARY | 2024-09-28 16:28 | XMS_ITS | Clinical Summary ---
Author Organization [facility] Address [address] [place] [address] Care Team Providers Care Compounder Name Role Phone Avril Mau L DO Primary Care Provider [phone] Mike Stanley MD Unavailable Source Comments [facility],non-owned Affiliates and Associated Physician Practices is amultiple site organization consisting of ambulatory clinics and hospital sitesin [place], [place], [place] and [place]. This disclosure is being madepursuant to the Care Everywhere program and may not contain all information available regarding this patient. Last updated 18.[facility] Allergies No known active allergies Medications * [...] 10/09/2017 10:59 AM CDT Plan of Treatment Health Maintenance Due Date Last Done Comments BONE DENSITY TESTING 1942 DTAP/TDAP/TD VACCINES (1 - Tdap) 1961 PNEUMOCOCCAL VACCINE 50+ (1 of 1 - PCV) 1992 ZOSTER VACCINE (1 of 2) 1992 Respiratory Syncytial Virus (RSV) Vaccine Pt: or over 60 yrs (1 - 1-dose 75+ series) 2017 COVID-19 VACCINE ( - 2023-2 5 season) 2024 INFLUENZA VACCINE (#1) 2024 DEPRESSION SCREENING 07/20/2024 HEPATITIS B VACCINE Aged Out No longe r eligible based on patient's age to complete this topic HIB VACCINE Aged Out No longer eligi ble based on patient's age to complete this topic HPV VACCINE Aged Out No longer eligi ble based on patient's age to complete this topic MENINGOCOCCAL (Group B) VACC INE SHARED DECISION-MAKING Aged Out No longer eligibl e based on patient's age to complete this topic MENINGOCOCCAL GROUPS A/C/Y/W VACCINE Aged Out No longer eligible b ased on patient's age to complete this topic Care Teams Compounder Relationship Specialty Start Date End Date Mau Mackenzie DO [address] [facility] [facility] [facility] [address] [place] [address] PCP - General Internal Medicine 11/24/14 [place] [id number] [place] [address] Orthopedic Surgery 01/11/15
== END 2024-09-28 14:32 | disposition home or self-care (01) ==
LOC: ANHIMG 14:37
PROVIDERS: PCP Internal Medicine; Visit Provider Internal Medicine
DX: M85.851 Other specified disorders of bone density and structure, right thigh (principal); Z78.0 Asymptomatic menopausal state
CPT/HCPCS: 77080

== ENCOUNTER 2025-02-08 14:10 | Outpatient (CLI) | payer MEDICARE, SELFPAY ==
--- NOTE | ~2025-02-08 | MM_ITS ---
EXAMINATION: MM screening [facility] HISTORY: Screening TECHNIQUE: Craniocaudal and mediolateral oblique 3-D tomosynthesis images were obtained and synthetic 2-D images were generated. CAD analysis was submitted and interpreted. COMPARISON: Comparison to multiple prior studies sequentially, with oldest reviewed study dated 08/05. BREAST PARENCHYMAL COMPOSITION: There are scattered areas of fibroglandular density. FINDINGS: There is no evidence of suspicious mass, calcification, or architectural distortion to sug gest malignancy in either breast. Scattered benign-appearing calcifications are present. IMPRESSION: 1. No mammographic evidence of malignancy. 2. Recommend routine screening mammography in one year. BI-RADS Category 2: Benign finding(s). Reviewed, dictated and finalized at location B.
--- OUTSIDE RECORDS SUMMARY | 2025-02-08 14:17 | XMS_ITS | Encounter Summary ---
Author Organization [facility] Address [address] [place] [address] Care Team Providers Care Entry Level Finance Name Role Phone Mau Mackenzie Luz DO Primary Care Provider [phone] [phone] Mike Stanley MD Unavailable Encounter Details Date Type Department Care Team (Late st Contact Info) Description 05/08/2020 Lab Requisition [facility] [address] [facility], [place] [id number] Vee Camacho MD [address] [facility] [address] [place] [address] Social History Tobacco Use Types Packs/Day Years Used Date Smoking Tobacco: Unknown Alcohol Use Standard Drinks/Week Comments Yes 0 (1 standard drink = 0.6 oz pur e alcohol) Comments Unknown Sex and Gender Information Value Date Recorded Sex Assigned at Not on file Legal Sex Female 9:09 AM CDT Gender Identity Not on file Sexual Orientation Not on file documented as of this encounter Plan of Treatment Not on file documented as of this encounter Procedures Procedure Name Priority Date/Time Associated Diagnosis Comments DERMATOPATHOLOGY Routine 05/07/2020 12:0 0 AM CDT documented in this encounter Results * DERMATOPATHOLOGY (05/07/2020 12:00 AM CDT) Case Report Dermatopathology Report Case: [id number] Authorizing Provider: Vee Camacho MD Collected: 05/07/2020 12:00 AM Ordering Location: [facility] Lab Received: 05/08/2020 07:14 AM Pathologist: Corina Sawyer MD Specimen: Skin, crown of scalp 0 4:32 PM CDT DERMATOPATHOLOGY LABORATORY Final Diagnosis Specimen A. SKIN, crown of scalp: BASAL CELL CARCINOMA, MICRONODULAR TYPE (C44.41) 0 4:32 PM CDT DERMATOPATHOLOGY LABORATORY at 1632 CDT Clinical History R/O BCC, irritated. 0 4:32 PM CDT DERMATOPATHOLOGY LABORATORY Gross Description Specimen A: Received is one formalin filled container labeled with the patient's name and designated crown of scalp. The specimen consists of a shave measuring [id number]. Jar 0. 0 4:32 PM CDT DERMATOPATHOLOGY [...] characteristic determined by the Dermatopathology Laboratory at [facility], directed by Dr. Joel Nunn. These tests need not be, and therefore are not, approved by the [place] Food and Drug Administration. The tests are used for clinical purposes. Billing Codes Specimen Charges Stain Charges 29261 1 0 4:32 PM CDT DERMATOPATHOLOGY LABORATORY Embedded Images 0 4:32 PM CDT DERMATOPATHOLOGY LABORATORY Pathology/Cytolog y TISSUE SPECIMEN FROM SKIN / Unknown 05/07/2020 05/08/2020 7:14 AM CDT Vee Camacho MD LAB - PATHOLOGY/CYTOLOGY OR DERABLES Final Result DERMATOPATHOLOGY LABORATORY [facility] - Department of Dermatology [facility] Specialized Medicine [facility] [facility], 3rd Floor [address] [phone] documented in this encounter Visit Diagnoses Not on filedocumented in this encounter Care Teams Entry Level Finance Relationship Specialty Start Date End Date Mau Mackenzie DO [address] [facility] [address] [place] [address] PCP - General Internal Medicine 11/24/14 [place] [address] [address] Orthopedic Surgery 01/11/15 documented as of this encounter
--- OUTSIDE RECORDS SUMMARY | 2025-02-08 14:17 | XMS_ITS | Clinical Summary ---
Author Organization [facility] Address [address] [facility] [place] [address] Care Team Providers Care Bend Sorter Name Role Phone Avril Mau L DO Primary Care Provider [phone] Mike Stanley MD Unavailable Source Comments [facility],non-owned Affiliates and Associated Physician Practices is amultiple site organization consisting of ambulatory clinics and hospital sitesin [place], [place], [place] and [place]. This disclosure is being madepursuant to the Care Everywhere program and may not contain all information available regarding this patient. Last updated 18.[facility] Allergies No known active allergies Medications * Be aware that medications may not be up to date on this document. Alwaysverify current medications with the patient. lisinopril (PRINIVIL; ZESTRIL) 20 MG tablet Take [...] 10:59 AM CDT Height 167.6 cm (5' 6) 10/09/2017 10:59 AM CDT Body Mass Index [...] VACCINE ( - 2023-2 5 season) 2024 DEPRESSION SCREENING 07/20/2024 INFLUENZA VACCINE (#1) 2025 HEPATITIS B VACCINE Aged Out No longe [...] on patient's age to complete this topic Insurance [employer] [address] [address] Care Teams Bend Sorter Relationship Specialty Start Date End Date Mau Mackenzie DO [address] [facility] [address] [place] [address] PCP - General Internal Medicine 11/24/14 [place] [address] [place] [address] Orthopedic Surgery 01/11/15
--- OUTSIDE RECORDS SUMMARY | 2025-02-08 14:17 | XMS_ITS | Clinical Summary ---
Author Organization [facility] Address [address] [facility] [address] [place]: Epic Prelude ADT [place] [address] Care Team Providers Care Assistant Federal Public Defender Name Role Phone Jaspal Alamo MD Primary Care Provider Medications LevoxyL 100 mcg tablet Take 1 Tablet (100 mcg) by mouth daily. 30 Tablet 2 07/04/2022 11:39 AM ORACLE EBS ARCHITECT 06/23/20 22 Active levothyroxine 100 mcg tablet [...] BEFORE surgery. 5 mL 08/31/2023 11:22 AM ORACLE EBS ARCHITECT 08/27/19 24 Active prednisoLONE acetate (PRED FORTE) 1 % suspension Administer 1 drop to right eye 3 times daily beginning the day AFTER surgery. 5 mL 08/31/2023 11:22 AM ORACLE EBS ARCHITECT 08/27/19 24 Active lisinopriL (PRINIVIL) 40 mg tablet Take 1 Tablet (40 mg) by mouth daily. 90 Tablet 3 08/24/2024 8:13 AM ORACLE EBS ARCHITECT 11/09/19 24 Active scopolamine (TRANSDERM-SCOP) 1 mg/72 hr patch Apply 1 patch transdermally every 3 days as needed for motion sickness. 4 Patch 02/15/2024 12:25 PM CDT 02/15/20 24 Active levothyroxine 100 mcg tablet Take 1 Tablet (100 mcg) by mouth daily. 90 Tablet 3 01/11/2025 10:21 AM CDT 08/04/19 25 Active amLODIPine (NORVASC) 5 mg tablet Take 1 Tablet (5 mg) by mouth daily. 90 Tablet 3 01/11/2025 10:21 AM CDT 10/11/19 25 Active ketorolac tromethamine (ACULAR) 0.5 % solution ADMINISTER 1 DROP IN LEFT EYE 3 TIMES DAILY STARTING 3 DAYS PRIOR TO SURGERY. 5 mL 10/26/2024 12:32 PM CDT 10/22/19 25 Active prednisoLONE acetate (PRED FORTE) 1 % suspension ADMINISTER 1 DROP IN LEFT EYE 3 TIMES DAILY BEGINNING THE DAY AFTER SURGERY. 5 mL 10/26/2024 12:32 PM CDT 10/22/19 25 Active lisinopriL (PRINIVIL) 40 mg tablet Take 1 Tablet (40 mg) by mouth daily. 90 Tablet 3 12/15/2024 2:52 PM CDT 12/16/19 25 Active Encounters Date Type Department Care Team Description 02/01/2025 External Device Data STL ABSTRACTION Provider, Abstract 02/01/2025 External Device Data STL ABSTRACTION Provider, Abstract 02/01/2025 External Device Data STL ABSTRACTION Provider, Abstract 01/31/2025 External Device Data STL ABSTRACTION Provider, Abstract 01/04/2025 External Device Data STL ABSTRACTION Provider, Abstract 01/03/2025 External Device Data STL ABSTRACTION Provider, Abstract 12/08/2024 External Device Data STL ABSTRACTION Provider, Abstract 12/06/2024 External Device Data STL ABSTRACTION Provider, Abstract 11/22/2024 External Device Data STL ABSTRACTION Provider, Abstract from Last 3 Months Social History Tobacco Use Types Packs/Day Years Used Date Smoking Tobacco: Never Assessed Comments Unknown Sex and Gender Information Value Date Recorded Sex Assigned at Not on file Legal Sex Female 3:50 AM ORACLE EBS ARCHITECT Gender Identity Not on file Sexual Orientation Not on file Plan of Treatment Health Maintenance Due Date Last Done Comments DTAP/TDAP/TD VACCINES (1 - Tdap) 1959 PNEUMOCOCCAL VACCINE 50+ YEARS (1 of 1 - PCV) 05/23/19 92 ZOSTER VACCINE (1 of 2) 1992 OSTEOPOROSIS SCREENING 2007 RSV VACCINE (60+ or ) (1 - 1-dose 75+ series) 2017 INFLUENZA VACCINE (#1) 2025 Insurance RX [employer] Medicare Part D RX [employer] (INTERNAL) [facility] Care Teams Assistant Federal Public Defender Relationship Specialty Start Date End Date Jaspal Alamo MD [address] [address] [facility] - General 09/29/01
--- OUTSIDE RECORDS SUMMARY | 2025-02-08 14:17 | XMS_ITS | Encounter Summary ---
Author Organization [facility] Address [address] [place] [address] Care Team Providers Care Miller [employer] Name Role Phone Jaspal Alamo MD Primary Care Provider Encounter Details Date Type Department Care Team (Latest Contact Info) Description 09/23/2000 Outpatient Historical [facility] NUCLEAR MEDICINE [facility] Jaspal Alamo MD [address] [facility] [address] [place] [address] Unspecified nontoxic nodular goiter (Primary Dx) Social History Tobacco Use Types Packs/Day Years Used Date Smoking Tobacco: Never Assessed Comments Unknown Sex and Gender Information Value Date Recorded Sex Assigned at Not on file Legal Sex Female 3:50 AM MAINTENANCE ASSISTANT Gender Identity Not on file Sexual Orientation Not on file documented as of this encounter Plan of Treatment Not on file documented as of this encounter Visit Diagnoses Diagnosis Unspecified nontoxic nodular goiter- Primary documented in this encounter Care Teams [employer] Relationship Specialty Start Date End Date Jaspal Alamo MD [address] [place], [place] [id number] PCP - General 09/29/01 documented as of this encounter
--- OUTSIDE RECORDS SUMMARY | 2025-02-08 14:17 | XMS_ITS | Encounter Summary ---
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 SKIN, right collarbone: EPIDERMOID CYST (L72.0) 12:10 PM [facility] DERMATOPATHOLOGY LABORATORY at 1210 MAT CUTTER Clinical History R/O cyst. 12:10 PM [facility] DERMATOPATHOLOGY LABORATORY Gross Description Specimen A: Received is one formalin filled container labeled with the patient's name and designated right collarbone. The specimen consists of a [id number] excision, bisected. Jar 0. 12:10 PM [facility] DERMATOPATHOLOGY LABORATORY Microscopic Description Specimen A. SKIN, right collarbone: Within the dermis, there is a space lined by epithelium that resembles normal epidermis and the infundibular portion of the hair follicle. 12:10 PM [facility] DERMATOPATHOLOGY LABORATORY Disclaimer An external and internal positive and negative controls are appropriate for the histochemical, immunohistochemical and immunofluorescence stain(s) in this case (if any), except where stated explicitly. The performance characteristics of the stain(s) cited in this report were developed and its performance characteristic determined by the Dermatopathology Laboratory at [facility], directed by Dr. Joel Nunn. These tests need not be, and therefore are not, approved by the [place] Food and Drug Administration. The tests are used for clinical purposes. Billing Codes Specimen Charges Stain Charges 75655 1 12:10 PM [facility] DERMATOPATHOLOGY LABORATORY Embedded Images 12:10 PM [facility] DERMATOPATHOLOGY LABORATORY Pathology/Cytolog y TISSUE SPECIMEN FROM SKIN / Unknown 08/16/2020 08/20/2020 11:08 AM [facility] Tiny Bassett MD LAB - PATHOLOGY/CYTOLOGY ORDERA BLES Final Result DERMATOPATHOLOGY LABORATORY [facility] - Department of Dermatology [facility] Specialized Medicine [address] [facility], [address]rd Floor [address] [phone] documented in this encounter Visit Diagnoses Not on filedocumented in this encounter Care Teams Center Director Lead Teacher Relationship Specialty Start Date End Date Mau Mackenzie DO [address] [facility] [address] [place], [place] [phone] PCP - General Internal Medicine 11/24/14 [place] [address] [place] [address] Orthopedic Surgery 01/11/15 documented as of this encounter
--- OUTSIDE RECORDS SUMMARY | 2025-02-08 14:17 | XMS_ITS | Encounter Summary ---
Author Organization [employer] Address [address] [place] [address] Care Team Providers Care Regional Sales Associate Name Role Phone Jaspal Alamo MD Primary Care Provider Encounter Details Date Type Department Care Team (Latest Contact Info) Description 09/29/2001 Outpatient Historical HIS NUCLEAR MEDICINE [facility] Jaspal Alamo MD [address] 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 [place], [place] [phone] PCP - General 09/29/01 documented as of this encounter
== END 2025-02-08 14:11 | disposition home or self-care (01) ==
LOC: ANHIMG 14:11
PROVIDERS: PCP Internal Medicine; Visit Provider Internal Medicine
DX: Z12.31 Encounter for screening mammogram for malignant neoplasm of breast (principal)
CPT/HCPCS: 77063; 77067